=== PATIENT | female | born 1975 | race African-American/Black ===

== ENCOUNTER 2020-06-04 17:06 | Emergency (ER) | payer BC, OTHER, MEDICAID, SELFPAY ==
[2020-06-04 17:11] VITALS: BP 132/77; PULSE 97; RESP 14; TEMP 36.9; O2SAT 100
--- NOTE | 2020-06-04 17:31 | ED.GENADULT ---
HPI - General Adult General Chief complaint: Urogenital-Female Stated complaint: pain with urination/vaginal discharge Time Seen by Provider: 06/04/20 17:31 Source: patient and RN notes reviewed Mode of arrival: ambulatory Limitations: no limitations History of Present Illness HPI narrative: 44-year-old -[place] female presents with vaginal irritation day for the past 3 days. No treatment. No significant pelvic pain. Dysuria consists of frequency, pressure, and decrease urine amount. Denies fever or chills. Concerned for STDs because she had unprotected sex with her . History of BV. No history of STDs. No new partners. Sexually active. No new partner. Denies unprotected intercourse with multiple partners. Does not douche. Exacerbating factors consist of urinating. Denies hematuria or vaginal bleeding. Denies being , LMP 8-9 days ago.? No flank pain. Denies nausea, vomiting, and abdominal pain.? Tolerating liquids well.? Remains active. The patient reports she have not been diagnosed with COVID-19. The patient reports she is not waiting for the results of a COVID-19 lab test. The patient reports she do not have fever, chills, weakness, or fatigue. The patient reports she do not have a new or worsening cough or shortness of breath. Denies chest pain. The patient reports she do not have any rhinorrhea, congestion, sore throat, and diarrhea. Denies recent traveling. Denies concerns for COVID-19 or exposures been home with limited outdoor exposure except for essential household needs, work, and return home. At this time, patient is not suspected of having COVID-19. Some parts of this dictation were generated by voice recognition software and may contain typographical and/or grammatical inaccuracies. Related Data Home Medications Medication Instructions Recorded Confirmed alprazolam 1 mg PO BID 11/30/19 06/04/20 ergocalciferol (vitamin D2) 50,000 unit PO WEEKLY 11/30/19 06/04/20 [Vitamin D2] hydrochlorothiazide 12.5 mg PO DAILY 11/30/19 06/04/20 hydroxyzine HCl 30 mg PO DAILY 06/04/20 06/04/20 hydroxyzine pamoate 25 mg PO HS 06/04/20 06/04/20 vexkvudfwupe-vwp-lexe-FA-vit K 1 tablet PO DAILY 06/04/20 06/04/20 [Adults Multivitamin] valacyclovir 1 mg PO DAILY 06/04/20 06/04/20 Allergies Allergy/AdvReac Type Severity Reaction Status Date / Time levofloxacin Allergy Mild Stroke Verified 06/04/20 17:26 like symptoms RASH diazepam Allergy Unknown Hallucinati Verified 06/04/20 17:26 ng hydrocodone Allergy Unknown Itching Verified 06/04/20 17:26 Sulfa (Sulfonamide Allergy Unknown Other Verified 06/04/20 17:26 Antibiotics) Review of Systems Review of Systems: Narrative: CONSTITUTIONAL: Denies fever, chills, sweats. EYES: Denies visual changes, redness, discharge. ENT: Denies rhinorrhea, congestion, sore throat, otalgia. CARDIOVASCULAR: Denies chest pain, palpitations, edema. RESPIRATORY: Denies dyspnea, wheezing, cough. GASTROINTESTINAL: Denies abdominal pain, nausea, vomiting, diarrhea. GENITOURINARY: Complains of dysuria (frequency, pressure, and decrease urine amount), vaginal irritation, abnormal discharge. Denies hematuria. SKIN: Denies rash or itching. MUSCULOSKELETAL: Denies acute back pain, joint pain, or myalgia. NEUROLOGIC: Denies numbness or focal weakness. PSYCHIATRIC: Denies anxiety or depression. All systems reviewed & are unremarkable except as noted in HPI and below. [facility] Past Medical History Medical History (Updated 06/05/20 @ 00:00 by Background Daemon) Bacterial vaginosis delivery delivered History of cold sores Surgical History Surgical History (Updated 06/04/20 @ 18:03 by KRISTAL Barraza) Gastric bypass status for obesity H/O section X3 History of cholecystectomy Family History Family History (Updated 06/04/20 @ 18:04 by KRISTAL Barraza) Father Alive and well Mother Schizophrenia Social Histo
--- NOTE | 2020-06-04 18:00 | PC.NURSE ---
NO UC ORDERED PER LARISA
[2020-06-04] MEDS: AZITHROMYCIN 250 MG TABLET 1000 MG PO (18:09)
[2020-06-04] MEDS: LIDOCAINE HCL 1% LOCAL INJ 20 ML VIAL INFILTRATE (18:10)
[2020-06-04] MEDS: cefTRIAXone 250 MG VIAL IM (18:11)
== END 2020-06-04 18:30 | disposition home or self-care (01) ==
PROVIDERS: Emergency Provider Nurse Practitioner Family; PCP Internal Medicine
DX: N76.0 Acute vaginitis (principal); R30.0 Dysuria; Z11.3 Encounter for screening for infections with a predominantly sexual mode of transmission; Z98.84 Bariatric surgery status
CPT/HCPCS: 81003; 87491; 87591; 87661; 96372; 99214; A9270; G0463; J0696

== ENCOUNTER 2020-06-18 16:34 | Emergency (ER) | payer BC, OTHER, MEDICAID, SELFPAY ==
--- NOTE | 2020-06-18 16:43 | ED.GENADULT ---
HPI - General Adult General Chief complaint: Urogenital-Female Stated complaint: Urogenital-female Time Seen by Provider: 06/18/20 16:57 Source: patient and RN notes reviewed Mode of arrival: ambulatory Limitations: no limitations History of Present Illness HPI narrative: 44-year-old female presents with concern for dysuria, urgency, frequency for 2 days. Reports history of bacterial vaginosis, was recently seen by her meeting coordinator for a Pap smear and test for BV, does not have those results. She denies flank pain, fever, abdominal pain, reports suprapubic tenderness. complaint: dysuria Related Data Home Medications Medication Instructions Recorded Confirmed alprazolam 1 mg PO BID 11/30/19 06/18/20 hydrochlorothiazide 12.5 mg PO DAILY 11/30/19 06/04/20 hydroxyzine HCl 30 mg PO DAILY 06/04/20 06/18/20 hydroxyzine pamoate 25 mg PO HS 06/04/20 06/18/20 nqkobmufuabh-oqb-qvwb-FA-vit K 1 tablet PO DAILY 06/04/20 06/18/20 [Adults Multivitamin] valacyclovir 1 mg PO DAILY 06/04/20 06/18/20 Allergies Allergy/AdvReac Type Severity Reaction Status Date / Time Sulfa (Sulfonamide Allergy Severe Other Verified 06/18/20 16:58 Antibiotics) hydrocodone Allergy Mild Itching Verified 06/18/20 16:58 diazepam Allergy Unknown Hallucinati Verified 06/18/20 16:58 ng levofloxacin AdvReac Severe Stroke Verified 06/18/20 16:58 like symptoms RASH Review of Systems Review of Systems: Narrative: CONSTITUTIONAL: Denies malaise, chills, sweats, or fever. CARDIOVASCULAR: Denies chest pain, palpitations, or edema. RESPIRATORY: Denies cough or dyspnea. GASTROINTESTINAL: Denies abdominal pain, nausea, vomiting, diarrhea GENITOURINARY: Reports suprapubic pain, frequency, urgency, dysuria. Denies flank pain or hematuria. MUSCULOSKELETAL: Denies back pain, or myalgia. All systems reviewed & are unremarkable except as noted in HPI and below PMFSH Past Medical History Medical History (Updated 06/18/20 @ 17:16 by Jael Andrews NP) Bacterial vaginosis delivery delivered History of cold sores Surgical History Surgical History (Updated 06/04/20 @ 18:03 by KRISTAL Barraza) Gastric bypass status for obesity H/O section X3 History of cholecystectomy Family History Family History (Updated 06/04/20 @ 18:04 by KRISTAL Barraza) Father Alive and well Mother Schizophrenia Social History Social History (Updated 06/04/20 @ 18:04 by KRISTAL Barraza) Smoking status: Never smoker Second hand tobacco smoke exposure: No Alcohol intake: never Substance use: never Gender identity (if verbalized by the patient): Female Comments At time of signature, agree with nursing past medical, surgical, social and family history. There is no relevant family history pertinent to the presenting complaint Exam Narrative: Exam Narrative: GENERAL: Well-appearing, well-nourished, and in no acute distress. HEAD: Normocephalic. EYES: PERRLA, conjunctivae clear. NECK: Supple. No lymphadenopathy CHEST: Clear to auscultation. No respiratory distress. HEART: Regular rate and rhythm. No murmur heard. Normal peripheral pulses. ABDOMEN: Soft, nontender upon palpation, nondistended, normal active bowel sounds, no palpable or pulsatile masses, no guarding. No CVA tenderness. Suprapubic tenderness SKIN: Warm, dry, no rash. NEURO: Alert and oriented x3. PSYCH: Normal mood and affect Course Course Emergency Course: Patient is aware of diagnosis, understands and agrees to treatment plan. Anticipatory guidance given. Patient agrees to follow-up as directed and is aware of reasons to seek care at the emergency department. Portions of this record may have been created with voice recognition software Vital Signs Vital signs: Vital Signs Temperature 98.2 F 06/18/20 16:47 Pulse Rate 69 06/18/20 16:47 Respiratory Rate 18 06/18/20 16:47 Blood Pressure 126/83 06/18/20 16:47 Pu
[2020-06-18 16:47] VITALS: BP 126/83; PULSE 69; RESP 18; TEMP 36.8; O2SAT 100
== END 2020-06-18 17:20 | disposition home or self-care (01) ==
PROVIDERS: Emergency Provider Nurse Practitioner; PCP Internal Medicine
DX: N39.0 Urinary tract infection, site not specified (principal); Z98.84 Bariatric surgery status; I10 Essential (primary) hypertension; F41.9 Anxiety disorder, unspecified
CPT/HCPCS: 81003; 87086; 87088; 99213; G0463

== ENCOUNTER 2020-10-21 15:58 | Outpatient (CLI) | payer BC, OTHER, MEDICAID, SELFPAY ==
[2020-10-21 17:34] LABS: HIV 1/2 Ab P24 Ag Result Negative (Negative)
[2020-10-21 18:35] LABS: Hepatitis C Virus Antibody Negative (Negative)
[2020-10-23 06:59] LABS: Rapid Plasma Reagin Non-Reactive (NonReactive)
[2020-10-27 05:02] LABS: Hepatitis Be Antigen Nonreactive
== END 2020-10-21 15:59 | disposition home or self-care (01) ==
LOC: ANHLAB 16:02
PROVIDERS: PCP Internal Medicine; Visit Provider Obstetrics & Gynecology
DX: Z11.3 Encounter for screening for infections with a predominantly sexual mode of transmission (principal)
CPT/HCPCS: 36415; 86592; 86703; 86803; 87350; G0432

== ENCOUNTER 2020-10-21 17:10 | Emergency (ER) | payer BC, OTHER, MEDICAID, SELFPAY ==
[2020-10-21 17:14] VITALS: BP 127/84; PULSE 93; RESP 14; TEMP 36.9; O2SAT 100
--- NOTE | 2020-10-21 17:22 | ED.GENADULT ---
HPI - General Adult General Chief complaint: Upper Respiratory Infection Stated complaint: sore throat Time Seen by Provider: 10/21/20 17:22 Source: patient and RN notes reviewed Mode of arrival: ambulatory Limitations: no limitations History of Present Illness HPI narrative: 45 year old female who presents to [facility] care with complaints of sore throat which started yesterday with pain increasing since last night. Patient states that she also has had some clear nasal drainage and states frontal headache. Patient denies any fevers, no ear pain, cough, denies any difficulty smelling or with taste. Patient states that pain to throat is increased with swallowing. Patient has even and nonlabored respirations with no dyspnea noted or verbalized. MD complaint: sore throat Onset (ago): day(s) (2) Location: mouth (sore throat) Radiation: non-radiation Severity: severe Severity scale (1-10): 7 Quality: aching and sharp Pain Consistency: intermittent Exacerbating factors: eating and other (swallowing) Associated symptoms: headaches and other (sore throat) Treatments prior to arrival: none Related Data Home Medications Medication Instructions Recorded Confirmed hydrochlorothiazide 12.5 mg PO DAILY 11/30/19 10/21/20 hydroxyzine HCl 30 mg PO DAILY 06/04/20 10/21/20 folic acid 1 mg PO DAILY 10/21/20 10/21/20 Allergies Allergy/AdvReac Type Severity Reaction Status Date / Time Sulfa (Sulfonamide Allergy Severe Hives Verified 10/21/20 17:23 Antibiotics) hydrocodone Allergy Mild Itching Verified 10/21/20 17:23 diazepam Allergy Unknown Hallucinati Verified 10/21/20 17:23 ng levofloxacin AdvReac Severe Stroke Verified 10/21/20 17:23 like symptoms RASH Review of Systems Review of Systems: Narrative: CONSTITUTIONAL: Denies fever, chills, or sweats. EYES: Denies visual changes, redness, or discharge. ENT: positive for rhinorrhea, congestion, sore throat, no otalgia. CARDIOVASCULAR: Denies chest pain, palpitations, or edema. RESPIRATORY: Denies cough or dyspnea. GASTROINTESTINAL: Denies abdominal pain, nausea, vomiting, or diarrhea. GENITOURINARY: Denies dysuria or hematuria. SKIN: Denies rash or itching. MUSCULOSKELETAL: Denies back pain, joint pain, or myalgia. NEUROLOGIC: positive for frontal headache,denies any numbness, or weakness. PSYCHIATRIC: Positive for history of anxiety or depression. [facility] Past Medical History Medical History (Updated 10/21/20 @ 17:40 by Rubina Davis NP) Anxiety Bacterial vaginosis delivery delivered History of cold sores Hypertension Pneumonia Surgical History Surgical History (Updated 10/21/20 @ 18:06 by Rubina Davis NP) Gastric bypass status for obesity H/O section X3 History of appendectomy History of cholecystectomy History of repair of hiatal hernia Family History Family History (Updated 06/04/20 @ 18:04 by KRISTAL Barraza) Father Alive and well Mother Schizophrenia Social History Social History (Updated 06/04/20 @ 18:04 by KRISTAL Barraza) Smoking status: Never smoker Second hand tobacco smoke exposure: No Alcohol intake: never Substance use: never Gender identity (if verbalized by the patient): Female Comments At time of signature, agree with nursing past medical, surgical, social and family history. There is no relevant family history pertinent to the presenting complaint Exam Narrative: Exam Narrative: GENERAL: Well-appearing, well-nourished, and in no acute distress. HEAD: Normocephalic, atraumatic. EYES: PERRLA and EOMI. ENT: Nares mild redness,clear rhinorrhea or epistaxis. Mucous membranes moist.TM's normal with good light reflex. throat red with enlarged tonsils with white exudates noted. NECK: Supple.lymphadenopathy CHEST: Clear to auscultation. No respiratory distress.SAO2 100% on room air. HEART: Regular rate and rhythm. No murmur heard. Normal peripheral pulses. ABDOMEN: Soft,
== END 2020-10-21 17:45 | disposition home or self-care (01) ==
PROVIDERS: Emergency Provider Registered Nurse; PCP Internal Medicine
DX: J02.0 Streptococcal pharyngitis (principal); I10 Essential (primary) hypertension; E66.9 Obesity, unspecified; Z68.34 Body mass index [BMI] 34.0-34.9, adult; Z98.84 Bariatric surgery status
CPT/HCPCS: 87804; 87880; 99213; G0463

== ENCOUNTER 2021-03-04 18:39 | Emergency (ER) | payer BC, OTHER, MEDICAID, SELFPAY ==
[2021-03-04 18:45] VITALS: BP 113/72; PULSE 73; RESP 18; TEMP 36.1; O2SAT 100
--- NOTE | 2021-03-04 19:04 | ED.FEMALEGU ---
HPI - Female Genitourinary General Chief complaint: Urogenital-Female Stated complaint: heavy discharge Source: patient and RN notes reviewed Mode of arrival: ambulatory Limitations: no limitations History of Present Illness MD elicited complaint: vaginal discharge and possible STD Pertinent past history: STI/STD Onset (ago): day(s) (2) Location of symptoms: perineum Vaginal discharge: yellow and vaginal odor Vaginal bleeding: none Treatment prior to arrival: none Sexual activity: Yes and New Sexual Partners Date of Last Menstrual Period: 02/09/21 Related Data Allergies Allergy/AdvReac Type Severity Reaction Status Date / Time Sulfa (Sulfonamide Allergy Severe Hives Verified 03/04/21 19:05 Antibiotics) hydrocodone Allergy Mild Itching Verified 03/04/21 19:05 diazepam Allergy Unknown Hallucinati Verified 03/04/21 19:05 ng levofloxacin AdvReac Severe Stroke Verified 03/04/21 19:05 like symptoms RASH Review of Systems Review of Systems: Narrative: CONSTITUTIONAL: Denies fever, chills, or sweats. EYES: Denies visual changes, redness, or discharge. ENT: Denies rhinorrhea, congestion, sore throat, or otalgia. CARDIOVASCULAR: Denies chest pain, palpitations, or edema. RESPIRATORY: Denies cough or dyspnea. GASTROINTESTINAL: Denies abdominal pain, nausea, vomiting, or diarrhea. GENITOURINARY: Denies dysuria or hematuria, states thick greenish vaginal discharge with odor SKIN: Denies rash or itching. MUSCULOSKELETAL: Denies back pain, joint pain, or myalgia. NEUROLOGIC: Denies headache, numbness, or weakness. PSYCHIATRIC: Positive history of anxiety or depression. All systems reviewed & are unremarkable except as noted in HPI and below PMFSH Past Medical History Medical History Anxiety Bacterial vaginosis delivery delivered History of cold sores Hypertension Pneumonia Surgical History Surgical History Gastric bypass status for obesity H/O section X3 History of abdominoplasty History of appendectomy History of cholecystectomy History of oophorectomy History of repair of hiatal hernia Family History Family History Father Alive and well Mother Schizophrenia Social History Social History Smoking status: Never smoker Second hand tobacco smoke exposure: No Alcohol intake: never Substance use: never Gender identity (if verbalized by the patient): Female Comments At time of signature, agree with nursing past medical, surgical, social and family history. There is no relevant family history pertinent to the presenting complaint Exam Narrative: Exam Narrative: GENERAL: Well-appearing, well-nourished, and in no acute distress. HEAD: Normocephalic, atraumatic. EYES: PERRLA and EOMI. ENT: Nares clear, no rhinorrhea or epistaxis. Mucous membranes moist.TM's normal with good light reflex, throat pink with no lesions or exudates noted NECK: Supple.no lymphadenopathy CHEST: Clear to auscultation. No respiratory distress.SAO2 100% on room air HEART: Regular rate and rhythm. No murmur heard. Normal peripheral pulses. ABDOMEN: Soft, nontender, nondistended, normal active bowel sounds.Vaginal examination with use of spectrum noted thick yellow tinged discharge with foul odor, vaginal gallo pink, no external lesions noted, specimens obtained via cultures and sent to lab for analysis EXTREMITIES: Normal range of motion. No edema. SKIN: Warm, dry, no rash. NEURO: No focal deficits. Alert and oriented x3. Course Vital Signs Vital signs: Vital Signs Temperature 36.1 C L 03/04/21 18:45 Pulse Rate 73 03/04/21 18:45 Respiratory Rate 18 03/04/21 18:45 Blood Pressure 113/72 03/04/21 18:45 Pulse Oximetry 100 03/04/21 18:45 Temperature 36.1
[2021-03-04] MEDS: LIDOCAINE HCL 1% LOCAL INJ 20 ML VIAL 2.1 ML IM (19:35)
[2021-03-04] MEDS: cefTRIAXone 1 GM VIAL IM (19:35)
== END 2021-03-04 19:44 | disposition home or self-care (01) ==
PROVIDERS: Emergency Provider Registered Nurse
DX: Z20.2 Contact with and (suspected) exposure to infections with a predominantly sexual mode of transmission (principal); I10 Essential (primary) hypertension; Z98.84 Bariatric surgery status
CPT/HCPCS: 87491; 87591; 87661; 96372; 99214; G0463; J0696

== ENCOUNTER 2021-09-20 12:25 | Emergency (ER) | payer BC, OTHER, MEDICAID, SELFPAY ==
--- NOTE | 2021-09-20 12:36 | ED.FEMALEGU ---
HPI - Female Genitourinary General Stated complaint: Vaginal Discharge Source: patient and RN notes reviewed Mode of arrival: ambulatory Limitations: no limitations Review of Systems Review of Systems: CONSTITUTIONAL: Denies malaise, chills, sweats, or fever. EYES: Denies visual changes, redness, or discharge. ENT: Denies rhinorrhea, congestion, sinus pain, otalgia or sore throat. CARDIOVASCULAR: Denies chest pain, palpitations, or edema. RESPIRATORY: Denies cough or dyspnea. GASTROINTESTINAL: Denies abdominal pain, nausea, vomiting, diarrhea, bloody, or mucous stools. GENITOURINARY: Denies dysuria or hematuria. SKIN: Denies rash or itching. MUSCULOSKELETAL: Denies back pain, joint pain, or myalgia. NEUROLOGIC: Denies numbness, weakness, or headache. PSYCHIATRIC: Denies anxiety or depression. All systems reviewed & are unremarkable except as noted in HPI and below PMFSH Comments At time of signature, agree with nursing past medical, surgical, social and family history. There is no relevant family history pertinent to the presenting complaint Exam Narrative: GENERAL: Well-appearing, well-nourished, and in no acute distress. HEAD: Normocephalic. EYES: PERRLA, conjunctivae clear. NECK: Supple. No lymphadenopathy CHEST: Clear to auscultation. No respiratory distress. HEART: Regular rate and rhythm. ABDOMEN: Soft, nontender upon palpation, nondistended, normal active bowel sounds, no palpable or pulsatile masses, no guarding. No CVA tenderness SKIN: Warm, dry, no rash. NEURO: Alert and oriented x3. PSYCH: Normal mood and affect Course Course Emergency Course: Patient is aware of diagnosis, understands and agrees to treatment plan. Anticipatory guidance given. Patient agrees to follow-up as directed and is aware of reasons to seek care at the emergency department. Portions of this record may have been created with voice recognition software Vital Signs Vital signs: Reviewed. MDM - Female Genitourinary MDM Narrative Medical decision making narrative: Exam findings show no acute concerns or changes; patient is non-toxic appearing and is in no distress. Patient is appropriate for outpatient treatment and follow-up. Differential Diagnosis Differential diagnosis: Likely urinary tract infection, bacterial vaginosis, vaginitis and cystitis Critical Care Time Critical Care Time Critical Care Time: No
[2021-09-20 12:41] VITALS: BP 125/83; PULSE 80; RESP 18; TEMP 37; O2SAT 100
--- NOTE | 2021-09-20 12:41 | ED.FEMALEGU ---
HPI - Female Genitourinary General Chief complaint: Urogenital-Female Stated complaint: Vaginal Discharge Time Seen by Provider: 09/20/21 12:55 Source: patient and RN notes reviewed Mode of arrival: ambulatory Limitations: no limitations History of Present Illness HPI Narrative: 46-year-old female presents with concern for fishy smelling jeter thick vaginal discharge. Reports recent intercourse with a broken condom and is concern for STD exposure. She denies dysuria, frequency, urgency. Denies abdominal pain, vomiting. MD elicited complaint: vaginal discharge Related Data Allergies Allergy/AdvReac Type Severity Reaction Status Date / Time Sulfa (Sulfonamide Allergy Severe Hives Verified 09/20/21 13:16 Antibiotics) hydrocodone Allergy Itching Verified 09/20/21 13:19 levofloxacin Allergy Other Verified 09/20/21 13:18 diazepam AdvReac Hallucinati Verified 09/20/21 13:20 ng metronidazole [From Flagyl] AdvReac Nausea and Verified 09/20/21 13:12 Vomiting Review of Systems Review of Systems: CONSTITUTIONAL: Denies malaise, chills, sweats, or fever. GASTROINTESTINAL: Denies abdominal pain, nausea, vomiting, diarrhea, bloody, or mucous stools. GENITOURINARY: Denies dysuria, frequency, urgency, or hematuria. Reports fishy jeter vaginal discharge for approximately 3 days SKIN: Denies General rash or itching. MUSCULOSKELETAL: Denies back pain or myalgia. All systems reviewed & are unremarkable except as noted in HPI and below PMFSH Comments At time of signature, agree with nursing past medical, surgical, social and family history. There is no relevant family history pertinent to the presenting complaint Exam Narrative: GENERAL: Well-appearing, well-nourished, and in no acute distress. HEAD: Normocephalic. EYES: PERRLA, conjunctivae clear. NECK: Supple. No lymphadenopathy CHEST: Clear to auscultation. No respiratory distress. HEART: Regular rate and rhythm. ABDOMEN: No CVA tenderness SKIN: Warm, dry, no rash. NEURO: Alert and oriented x3. PSYCH: Normal mood and affect patient declines pelvic exam Course Course Emergency Course: Patient is aware of diagnosis, understands and agrees to treatment plan. Anticipatory guidance given. Patient agrees to follow-up as directed and is aware of reasons to seek care at the emergency department. Portions of this record may have been created with voice recognition software Vital Signs Vital signs: Reviewed. MDM - Female Genitourinary MDM Narrative Medical decision making narrative: Exam findings show no acute concerns or changes; patient is non-toxic appearing and is in no distress. Patient is appropriate for outpatient treatment and follow-up. Differential Diagnosis Differential diagnosis: Likely urinary tract infection, bacterial vaginosis, vaginitis, cystitis and other (STI) Critical Care Time Critical Care Time Critical Care Time: No Discharge Plan Discharge Clinical Impression: Possible exposure to STD, Problematic vaginal discharge Patient Disposition: Home, Self-Care Condition: Stable Instructions: Antibiotic Form, Bacterial Vaginosis (ED), Sexually Transmitted Diseases (ED) Additional Instructions: You have been tested for potential gonorrhea, chlamydia, and bacterial vaginosis today. You have received antibiotics to treat gonorrhea today, a prescription has been called into your pharmacy to treat chlamydia and bacterial vaginosis. You will receive a phone call in 2-3 days with the results of today's testing. It is very important that you avoid unprotected intercourse during treatment and for 7 days AFTER TREATMENT is complete and until your partner(s) have been treated. Please encourage your partner(s) to seek testing and treatment. When you have been exposed to sexually transmitted infections, it is important that you seek comprehensive testing, since we do not provide testing for all sexually transmitted infections. Some infections can have no s
[2021-09-20] MEDS: cefTRIAXone 1 GM VIAL 0.5 GM IM (13:29)
[2021-09-20] MEDS: LIDOCAINE HCL 1% LOCAL INJ 20 ML VIAL 2.1 ML IM (13:32)
== END 2021-09-20 13:55 | disposition home or self-care (01) ==
PROVIDERS: Emergency Provider Nurse Practitioner
DX: N89.8 Other specified noninflammatory disorders of vagina (principal)
CPT/HCPCS: 81003; 87491; 87591; 87661; 96372; 99214; G0463; J0696

== ENCOUNTER 2022-03-09 11:47 | Emergency (ER) | payer OTHER, MEDICAID, SELFPAY ==
[2022-03-09 11:52] VITALS: BP 126/77; PULSE 76; RESP 20; TEMP 36.8; O2SAT 100
--- NOTE | 2022-03-09 12:13 | ED.ALLEREA ---
HPI - Allergic Reaction General Chief complaint: Allergic Reaction Stated complaint: allergic reaction - hives and throat swelling Time Seen by Provider: 03/09/22 12:00 History of Present Illness HPI narrative: 46-year-old female presents to the emergency room for evaluation of allergic reaction. Patient states yesterday she was eating Vietnamese fries, and soon thereafter felt that her throat was closing up and developed a rash on her chest and neck. Patient states that she took some Benadryl last night and did not resolve her symptoms. Patient states that she will occasionally get the symptoms, not knowing what the trigger is Related Data Allergies Allergy/AdvReac Type Severity Reaction Status Date / Time Sulfa (Sulfonamide Allergy Severe Hives Verified 03/09/22 12:06 Antibiotics) hydrocodone Allergy Mild Itching Verified 03/09/22 12:06 diazepam Allergy Unknown Hallucinati Verified 03/09/22 12:06 ng levofloxacin AdvReac Severe Stroke Verified 03/09/22 12:06 like symptoms RASH metronidazole [From Flagyl] AdvReac Nausea and Verified 03/09/22 12:06 Vomiting Review of Systems Review of Systems: CONSTITUTIONAL: Denies fever, chills, or sweats. EYES: Denies visual changes, redness, or discharge. ENT: Denies rhinorrhea, congestion, sore throat, or otalgia. CARDIOVASCULAR: Denies chest pain, palpitations, or edema. RESPIRATORY: Reports shortness of breath GASTROINTESTINAL: Denies abdominal pain, nausea, vomiting, or diarrhea. GENITOURINARY: Denies dysuria or hematuria. SKIN: Reports rash MUSCULOSKELETAL: Denies back pain, joint pain, or myalgia. NEUROLOGIC: Denies headache, numbness, dizziness, or weakness. PSYCHIATRIC: Denies anxiety or depression. [facility] Past Medical History Medical History Anxiety Elective x1 HSV (herpes simplex virus) infection Type 1 and Type 2 Hypertension Missed x1 2009 PCOS (polycystic ovarian syndrome) Surgical History Surgical History Gastric bypass status for obesity 2011 H/O section X3 12/06/91, c/s, F, 6#7, Toxemia 09/21/06, c/s, M, 7# 11/21/09, c/s, M, 7# History of abdominoplasty History of appendectomy History of cholecystectomy 2013 History of left salpingo-oophorectomy History of repair of hiatal hernia Family History Family History Father Alive and well Mother Schizophrenia Social History Social History Smoking status: Never smoker Second hand tobacco smoke exposure: No Alcohol intake: never Substance use: never Gender identity (if verbalized by the patient): Female Sexual Orientation (if Verbalized by the Patient): Straight or Heterosexual Exam Narrative: GENERAL: Well-appearing, well-nourished, and in no acute distress. HEAD: Normocephalic, atraumatic. EYES: PERRLA and EOMI. ENT: Nares clear, no rhinorrhea or epistaxis. Mucous membranes moist. Oropharynx without tonsillar hypertrophy exudate or other lesions. Bilateral TMs pearly jeter nonbulging CHEST: Clear to auscultation. No respiratory distress. No wheezes rales or rhonchi HEART: Regular rate and rhythm. No murmur heard. Normal peripheral pulses. EXTREMITIES: Normal range of motion. No edema. SKIN: Scattered erythematous, maculopapular lesions to chest and right lateral neck NEURO: No focal deficits. Alert and oriented x3. PSYCH: Normal mood and affect. Course Vital Signs Vital signs: Vital Signs Temperature 36.8 C 03/09/22 11:52 Pulse Rate 76 03/09/22 11:52 Respiratory Rate 20 03/09/22 11:52 Blood Pressure 126/77 03/09/22 11:52 Pulse Oximetry 100 03/09/22 11:52 Temperature 36.8 C 03/09/22 11:52 Pulse Rate 76 03/09/22 11:52 Respiratory Rate 20 03/09/22 11:52 Blood Pressure 12
[2022-03-09] MEDS: methylPREDNISolone SOD SUCC 125 MG VIAL IV PUSH (12:40)
[2022-03-09] MEDS: diphenhydrAMINE HCl INJ 50 MG/ML VIAL 25 MG IV PUSH (12:40)
[2022-03-09] MEDS: SODIUM CHLORIDE 0.9% IV 1,000 ML 999 ML IV CONT (12:40)
[2022-03-09] MEDS: FAMOTIDINE 20 MG/2 ML VIAL IV PUSH (12:40)
--- NOTE | 2022-03-09 12:40 | PC.NURSE ---
pt stuck multiple times by 3 different rns to obtain iv access.
== END 2022-03-09 13:45 | disposition home or self-care (01) ==
PROVIDERS: Emergency Provider Nurse Practitioner Family
DX: T78.40XA Allergy, unspecified, initial encounter (principal); I10 Essential (primary) hypertension; E28.2 Polycystic ovarian syndrome; Z98.84 Bariatric surgery status
CPT/HCPCS: 96361; 96374; 96375; 99284; J1200; J2930; J7030

== ENCOUNTER 2023-08-08 17:53 | Emergency (ER) | payer OTHER, MEDICAID, SELFPAY ==
[2023-08-08 18:09] VITALS: BP 136/84; PULSE 72; RESP 16; TEMP 36.2; O2SAT 100
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
[2023-08-08] MEDS: cefTRIAXone 500 MG, LIDOCAINE HCL 1% LOCAL INJ 1 ML IM (18:38)
== END 2023-08-08 19:11 | disposition home or self-care (01) ==
PROVIDERS: Emergency Provider Nurse Practitioner Family; PCP Internal Medicine
DX: N76.0 Acute vaginitis (principal); H10.9 Unspecified conjunctivitis; I10 Essential (primary) hypertension; Z79.899 Other long term (current) drug therapy; Z11.3 Encounter for screening for infections with a predominantly sexual mode of transmission
CPT/HCPCS: 96372; 99214; G0463; J0696

== ENCOUNTER 2023-08-27 16:34 | Emergency (ER) | payer OTHER, MEDICAID, SELFPAY ==
--- NOTE | ~2023-08-27 | XR_ITS ---
EXAMINATION: XR chest 2V Exam Date/Time: 08/27/2023 17:30 CDT HISTORY: COUGH,SOB, SWELLING IN EXTREMITIES FOR 2 DAYS. Comparison: None. RESULT: Lines, tubes, and devices: None. Lungs and pleura: Clear. Cardiomediastinal silhouette: Normal. Other: No acute osseous or upper abdominal finding. IMPRESSION: No acute cardiopulmonary process. Reviewed, dictated and finalized at location K.
[2023-08-27 16:48] VITALS: BP 132/82; PULSE 82; RESP 16; TEMP 36.8; O2SAT 100
--- NOTE | 2023-08-27 17:14 | ED.URI ---
HPI - URI/Sore Throat General Chief Complaint: Upper Respiratory Infection Stated Complaint: cough,shortness of breath Time Seen by Provider: 08/27/23 17:05 Source: patient, RN notes reviewed and old records reviewed Mode of arrival: ambulatory Limitations: no limitations History of Present Illness HPI Narrative: 48 year old female presents to express care with complaints of having cough, nasal congestion and drainage and some shortness of breath for the past 2 days with cough and exertion, states some chest discomfort with cough also.. Patient reports that she is concerned that she could have COVID, strep or she has been exposed to flu. Patient reports that she works at [employer] [place] and has had several kids with COVID. Patient concerned since she has noticed some swelling of her hands and of her feet lately also.Patient denies any fevers, chills or sweats or body aches. MD elicited complaint: cough, nasal congestion and other Pertinent past history: pneumonia and other (gastric bypass) Onset (ago): day(s) (2) Pain scale (0-10): 2 Able to tolerate fluids by mouth: Yes Treatments prior to arrival: none Related Data Allergies Allergy/AdvReac Type Severity Reaction Status Date / Time Sulfa (Sulfonamide Allergy Severe Hives Verified 08/27/23 16:56 Antibiotics) hydrocodone Allergy Mild Itching Verified 08/27/23 16:56 diazepam Allergy Unknown Hallucinati Verified 08/27/23 16:56 ng levofloxacin AdvReac Severe Stroke Verified 08/27/23 16:56 like symptoms RASH metronidazole [From Flagyl] AdvReac Nausea and Verified 08/27/23 16:56 Vomiting Review of Systems Review of Systems: CONSTITUTIONAL: Denies fever, chills, or sweats. EYES: Denies visual changes, redness, or discharge. ENT: Reports some rhinorrhea, congestion, no sore throat, or otalgia. CARDIOVASCULAR: states some chest pain with cough intermittent, no palpitations, edema to feet and ankles RESPIRATORY: Reports cough some dyspnea with exertion GASTROINTESTINAL: Denies abdominal pain, nausea, vomiting, or diarrhea. GENITOURINARY: Denies dysuria or hematuria. SKIN: Denies rash or itching. MUSCULOSKELETAL: Denies back pain, joint pain, or myalgia. NEUROLOGIC: Denies headache, numbness, or weakness. PSYCHIATRIC: Positive for anxiety or depression. All systems reviewed & are unremarkable except as noted in HPI and below PMFSH Past Medical History Medical History Anxiety Elective x1 HSV (herpes simplex virus) infection Type 1 and Type 2 Hypertension Missed x1 2010 PCOS (polycystic ovarian syndrome) Surgical History Surgical History Gastric bypass status for obesity 2012 H/O section X3 12/06/91, c/s, F, 6#7, Toxemia 09/21/06, c/s, M, 7# 11/21/09, c/s, M, 7# History of abdominoplasty History of appendectomy History of cholecystectomy 2013 History of left salpingo-oophorectomy History of repair of hiatal hernia Family History Family History Father Alive and well Mother Schizophrenia Social History Social History Smoking status: Never smoker Second hand tobacco smoke exposure: No Alcohol intake: never Substance use: never Living arrangements: with family Occupation/Education: occupation Gender identity (if verbalized by the patient): Female Sexual Orientation (if Verbalized by the Patient): Straight or Heterosexual Comments At time of signature, agree with nursing past medical, surgical, social and family history. There is no relevant family history pertinent to the presenting complaint Exam Narrative: GENERAL: Well-appearing, well-nourished, and in no acute distress. HEAD: Normocephalic, atraumatic. EYES: PERRLA
== END 2023-08-27 18:03 | disposition home or self-care (01) ==
PROVIDERS: Emergency Provider Registered Nurse; PCP Internal Medicine
DX: J06.9 Acute upper respiratory infection, unspecified (principal); Z20.822 Contact with and (suspected) exposure to COVID-19; I10 Essential (primary) hypertension; E28.2 Polycystic ovarian syndrome; Z98.84 Bariatric surgery status; E66.9 Obesity, unspecified; Z68.35 Body mass index [BMI] 35.0-35.9, adult
CPT/HCPCS: 71046; 87081; 87426; 87804; 87880; 99213; C9803; G0463

== ENCOUNTER 2023-11-04 11:03 | Outpatient (CLI) | payer OTHER, MEDICAID, SELFPAY ==
[2023-11-04 12:33] LABS: Rapid Plasma Reagin Non-Reactive (NonReactive)
[2023-11-04 12:41] LABS: HIV 1/2 Ab P24 Ag Result Negative (Negative)
[2023-11-04 12:47] LABS: Hepatitis B Surface Antigen Negative (Negative)
[2023-11-04 12:52] LABS: HAV RESULT Negative (Negative)
[2023-11-04 13:04] LABS: Hepatitis C Virus Antibody Negative (Negative)
== END 2023-11-04 11:04 | disposition home or self-care (01) ==
LOC: ANHLAB 11:07
PROVIDERS: Visit Provider Obstetrics & Gynecology
DX: A64 Unspecified sexually transmitted disease (principal)
CPT/HCPCS: 36415; 86592; 86695; 86696; 86703; 86709; 86803; 87340; G0432

== ENCOUNTER 2025-06-19 17:08 | Emergency (ER) | payer OTHER, MEDICAID, SELFPAY ==
--- OUTSIDE RECORDS SUMMARY | 2025-06-19 17:10 | XMS_ITS | Clinical Summary ---
Author Organization [facility] Address [address] [place] [address] Care Team Providers Care Electrician Station Assistant Name Role Phone Octavio Rodriguez MD Unavailable [phone] Yobany Parsons MD Unavailable [phone] Shana Wyatt MD Unavailable [phone] No, Physician Unavailable Olive Shah PT Unavailable Unavailable Osvaldo Crenshaw MACHINE STITCHER Unavailable [phone] Rosy Monroe MD Primary Care Provi albina Allergies Active Allergy Reactions Criticality Noted Date Comments Meperidine Anaphylaxis High 04/06/2022 Diazepam Other (See comments) Low 03/23/2017 Night terrors and irritability Hydromorphone Anaphylaxis High 03/29/2022 Metronidazole Rash Medium 06/05/2018 Hydrocodone Other (See comments) Low 06/05/2018 Bad dreams Levofloxacin Other (See comments) High Stroke like symptoms Sulfa (Sulfonamide Antibiotics) Other (See comments) Low Reaction: Stroke like symptoms Acetaminophen-Codeine Other (See comments) High 01/05/2023 Caused impaction resulting in hospitalization Medications cholecalciferol (VITAMIN D-3) 2000 unit tablet Take 1 tablet (2,000 Units total) by mouth daily Active EPINEPHrine 0.3 mg/0.3 mL auto-injection syringeIndicati ons:Anaphylaxis Inject 0.3 mL (0.3 mg total) into the muscle as instructed as needed for anaphylaxis 2 each 2 Active multivitamin capsule Take 1 capsule by mouth daily Active ascorbic acid (VITAMIN C) 500 mg tablet,chewable Take 1 tablet/chew tab (500 mg total) by mouth 2 (two) times a day 60 tablet/chew tab 3 Active tranexamic acid (LYSTEDA) 650 mg tablet TAKE 1/2 TABLET DAILY X 2 MONTHS 5 Active Hospital, Clinic, or Other Facility Administered Medication Ordered Dose Route Frequency Start Date End Date Status cyanocobalamin (Vitamin B-12) injection 1,000 mcgIndications:Vitamin B12 deficiency 1000 mcg IM Every 30 days 05/23/2025 Active Active Problems Problem Noted Date Diagnosed Date Bilateral sacroiliitis 10/14/2023 Complex tear of medial meniscus of right knee Spinal stenosis of lumbar re gion without neurogenic claudication 01/04/2023 Postlaminectomy syndrome, lumbar 01/03/2023 Lumbar radiculopathy 08/12/2022 Anaphylaxis 04/22/2022 Anaphylactic syndrome 03/29/2022 Anemia 05/26/2020 Anxiety 05/26/2020 Vitamin D deficiency 05/26/2020 DDD (degenerative disc disease), lumbar 04/18/20 Spinal stenosis of lumbar region 04/18/2019 Hypertension 12/07/2018 UTI (urinary tract infection) 09/04/2018 Iron deficiency 05/07/2018 Vitamin B12 deficiency 05/07/2018 Chronic bilateral low back pain without sciatica 10/28/2016 Flexural atopic dermatitis 10/28/2016 History of gastric bypass 10/28/2016 Postoperative pain Encounters Date Type Department Care Team Description 06/05/2025 Telephone [facility] Speech Therapy [address] [place] [address] Matilde Waters SLP 05/23/2025 8:30 AM CDT Office Visit [facility] [address] [facility] [address] [place] [address] Arturo Smith MD Memory loss (Primary Dx); Vitamin B12 deficiency 04/26/2025 3:52 PM CDT - 04/26/2025 11:59 PM CDT Hospital Encounter [facility] [address] [place] [address] Memory loss Discharge Disposition: Discharge to home or self care 04/26/2025 10:45 AM CDT Clinical Support [facility] [address] [place] [address] [address] [place] [address] Vitamin B12 deficiency (Primary Dx) 04/26/2025 Telephone [facility] [address] [place] [address] Justine Hernandez MA 04/16/2025 Results Follow-Up [facility] [address] [place] [address] Justine Hernandez MA Vitamin B12, TSH 04/15/2025 2:50 PM CDT Lab [address] [address] Vitamin B12 deficiency; Memory loss; Hypothyroidism, unspecified type 04/15/2025 11:30 AM CDT Office Visit [facility] [address] [place] [address] Arturo Smith MD Memory loss (Primary Dx); Vitamin B12 deficiency; Hypothyroidism, unspecified type from Last 3 Months Immunizations Immunization Administration Dates Next Due Hep A, Adult 10/12/2016,02/24/2016 Hep B Vaccine 10/12/2016,03/23/2016,02/24/2016 Influenza, Quadrivalent, Spl it, Intramuscular 10/12/2016 Influenza, Quadrivalent, Spl it, Preservative Free, Intramuscular 08/11/2018 Influenza, Trivalent, Preser vative Free, Intramuscular 03/01/2015 Influenza, Unspecified 09/08/2013 PPD TEST 06/08/2023 Tdap 03/23/2016 Surgical History Surgery Date Site/Laterality Comments SECTION 11/07/2009 - 11/06/2010 GASTRIC BYPASS 11/07/2010 - 11/06/2011 CARPAL TUNNEL RELEASE 11/07/2011 - 11/06/2012 Left CARPAL TUNNEL RELEASE Right CHOLECYSTECTOMY OOPHORECTOMY Left one ovary APPENDECTOMY SECTION x2 SPINE SURGERY 03-28-22 spinal fusion L3-L4 in went in the front of abdomen, 08-13-22 spinal fusion L3-L4 went in through the back RADIOFREQUENCY ABLATION Medical History Medical History Date Comments Gastric ulcer Anemia Anxiety Obesity BMI 33 Lumbar radiculopathy Spinal stenosis Chronic pain disorder Family History Medical History Relation Name Comments Hypertension Mother Robert mancilla Hypertensi on; Hypertension Other Family history of Hypertension; Relation Name Status Comments Mother Robert mancilla Other Social History Tobacco Use Types Packs/Day Years Used Date Smoking Tobacco: Never Smokeless Tobacco: Never Tobacco Cessation:Counseling Given: Not Answered Alcohol Use Standard Drinks/Week Comments No 0 (1 standard drink = 0.6 oz pur e alcohol) Social Connection and Isolation Panel Answer Date Recorded In a typical week, how many times do you talk on the phone with family, friends, or neighbors? More than three times a week 03/30/2022 How often do you get togethe r with friends or relatives? More than three times a week 03/30/2022 How often do you attend chur ch or gnosticist services? More than 4 times per year 03/30/2022 Do you belong to any clubs o r organizations such as caodaism groups, unions, fraternal or athletic groups, or school groups? Yes 03/30/2022 How often do you attend meet ings of the clubs or organizations you belong to? 1 to 4 times per year 03/30/2022 Are you , , di vorced, , never , or living with a partner? Never 03/30/2022 AUDIT-C Answer Date Recorded Q1: How often do you have a drink containing alc ohol? Never 04/07/2023 Average Number of Drinks Not on file 023 Frequency of Binge Drinking Not on file 11/2022 Overall Financial Resource Strain (CARDIA) Answe r Date Recorded How hard is it for you to pa y for the very basics like food, housing, medical care, and heating? Not very hard 03/30/2022 PRAPARE - Transportation Answer Date Re corded In the past 12 months, has l ack of transportation kept you from medical appointments or from getting medications? No 03/08 In the past 12 months, has l ack of transportation kept you from meetings, work, or from getting things needed for daily living? No 03/30/2022 Personal Safety Answer Date Recorded Have you ever been in or are you currently in a harmful physical or emotional relationship or is someone making you feel afraid or unsafe? Denies 10/16/2024 Comments No Sex and Gender Information Value Date Recorded Sex Assigned at Not on file Legal Sex Female 10:56 AM CONVERSION MAN Gender Identity Not on file Sexual Orientation Not on file Obstetrics History Para Term AB IAB SAB Ectopic Multiple Livin g Live Births 4 3 3 Date Outcome GA Total Labor Labor/2nd/3rd Weight Sex Type Anes PTL Kaylin A1 A5 Name Clin Term Term Term Last Filed Vital Signs Vital Sign Reading Time Taken Comments Blood Pressure 101/71 05/23/2025 8:13 AM CDT Pulse 91 05/23/2025 8:13 AM CDT Temperature 36.3 C (97.3 F) 10/16/2024 3:19 PM CONVERSION MAN Respiratory Rate 18 10/16/2024 7:34 PM CONVERSION MAN Oxygen Saturation 98% 05/23/2025 8:13 AM CDT Inhaled Oxygen Concentration - - Weight 72.7 kg (160 lb 3.2 oz) 05/23/2025 8:13 A M CDT Height 175.3 cm (5' 9.02) 05/23/2025 8:13 AM CD T Body Mass Index 23.65 05/23/2025 8:13 AM CDT Plan of Treatment Health Maintenance Due Date Last Done Comments Cervical Cancer Screening 1977 Colon Cancer Screening-Colonoscopy 1977 Depression Screening 1977 Regular Well Visit/Exam 18-64 1995 Breast Cancer Screening-Mammogram 06/29/2023 06/29/2022, 08/06/2020, 09/29/2018 Influenza Vaccine (#1) 2025 8, 10/12/2016, 03/01/2015, Additional history exists DTaP/Tdap/Td Vaccine (2 - Td or Tdap) 03/23/2026 03/23/2016 Hepatitis B Screening Completed 10/12/2016 , 03/23/2016, 02/24/2016 Hepatitis C Screening Completed 09/21/2023 Pneumococcal vaccine <65 Aged Out No longer eligible based on patient's age to complete this topic Medical Devices Implanted Type Area Switchboard And Control Room Operator Device Identifier Shelf Expiration Date Model / Serial / Lot Cage In Back From Prior Surgery N/A: Back [employer] Ar-8978-Cp Internalbrace Kit Hand Wrist Set Implant Ligament Augmentation - [id number] Implanted:Qty: 1 on 08/13/2021 by Octavio Rodriguez MD at [facility] Right: Thumb [employer] [id number] 02/04/2026 AR-8978-CP / / [id number] Allosource Allofuse Plus Putty Graft 5ml Bone Demineralized Bone Matrix [id number] - [id number] Implanted:Qty: 1 on 08/12/2022 by Yobany Parsons MD at [facility] Spine Lumbar Allosource 10/29/2022 [id number] / / [id number] Orthofix Spinal Implants Screw Bone 6.5mm 35mm Janus Spine Cortex Cannltd St Self [id number] - [id number] Implanted:Qty: 1 on 08/12/2022 by Yobany Parsons MD at [facility] Spine Lumbar Orthofix Spinal Implants [id number] / / Orthofix Spinal Implants Janus 6.5mm 40mm Cannulated Self Tap Self Drill Modular Spine [id number] - [id number] Implanted:Qty: 1 on 08/12/2022 by Yobany Parsons MD at [facility] Spine Lumbar Orthofix Spinal Implants [id number] / / Orthofix Spinal Implants Firebird 5.5mm 40mm Hexagon Taper End Prebent Red Spinal [id number] - [id number] Implanted:Qty: 1 on 08/12/2022 by Yobany Parsons MD at [facility] Spine Lumbar Orthofix Spinal Implants [id number] / / Orthofix Spinal Implants Firebird Modular Lock Spine Screw Set Fixation System 44 [id number] Implanted:Qty: 2 on 08/12/2022 by Yobany Parsons MD at [facility] Spine Lumbar Orthofix Spinal Implants 44 / / Orthofix Spinal Implants Gravette L120 Mm Open Body Spine; Thoracolumbar Tall Screw Bone 202119 - [id number] Implanted:Qty: 2 on 08/12/2022 by Yobany Parsons MD at [facility] Spine Lumbar Orthofix Spinal Implants [id number] / / Procedures Procedure Name Priority Date/Time Associated Diagnosis Comments MRI BRAIN WO CONTRAST Schedule Routine, Read Routine (OP Routine) 04/26/2025 4:35 PM CDT Memory loss METHYLMALONIC ACID, SERUM Routine 04/15/2025 3:01 PM CDT Vitamin B12 deficiency Memory loss Hypothyroidism, unspecified type TSH Routine 04/15/2025 3:01 PM CDT Vitamin B12 deficiency Memory loss Hypothyroidism, unspecified type VITAMIN B12 Routine 04/15/2025 3:01 PM CDT Vitamin B12 deficiency Memory loss Hypothyroidism, unspecified type HEPATITIS C ANTIBODY Routine 09/21/2023 3:46 PM CONVERSION MAN SCREENING MAMMOGRAM BILATERAL W MAMADOU W IMPLANTS Schedule Routine, Read Routine (OP Routine) 06/29/2022 2:28 PM CDT Screening mammogram, encounter for from Last 3 Months or Most Recently Relevant to Health Maintenance Results * MRI Brain WO Contrast (04/26/2025 4:35 PM CDT) Anatomical Region Laterality Modality Head and Neck N/A Magnetic Resonan ce 04/29/2025 6:35 AM CDT Narrative 04/29/2025 7:33 AM CDT EXAM DESCRIPTION: MRI BRAIN WO CONTRAST REASON FOR STUDY: memory loss Memory loss that started about 6 months ago. She believe the memory lost is being caused by a medication she started about a year. First encounter TECHNIQUE: Multiplanar imaging includes non-contrasted T1, T2, FLAIR, and diffusion with ADC map sequences. Additional sequence(s) sensitive to blood products. Images stored on PACS. COMPARISON: CT head without contrast dated 02/04/2023. FINDINGS: There is diffusion restriction to suggest acute/recent infarction. No parenchymal susceptibility signal to indicate blood degradation products. Note made of cavum septum pellucidi et vergae. There is no hydrocephalus. The basilar cisterns are maintained. The occasional subcortical and periventricular white matter tiny T2/FLAIR hyperintense signal in the cerebral hemispheres is highly nonspecific and reflect gliosis and can also be seen in setting of long-term headaches. Alternatively accelerated chronic microvascular ischemic type process or other white matter changes would also be included in the differential in the proper clinical scenario. Postcontrast imaging can be obtained as clinically indicated. The bilateral globes are symmetric. The imaged paranasal sinuses and the mastoid air cells are predominantly clear. IMPRESSION: 1. No acute/recent infarction. 2. The occasional white matter tiny T2/FLAIR hyperintense signal is highly nonspecific and could reflect gliosis and can also be seen in setting of long-term headaches. 3. Other findings as above. THIS IS AN ELECTRONICALLY VERIFIED FINAL REPORT 04/29/2025 7:33 AM - Electronically signed by Poncho Moe D.O. AP: ENID Report ID: [id number] Reading Location: [place] [address] Procedure Note Poncho Moe, DO - 04/29/2025 EXAM DESCRIPTION: MRI BRAIN WO CONTRAST REASON FOR STUDY: memory loss Memory loss that started about 6 months ago. She believe the memory lostis being caused by a medication she started about a year. First encounter TECHNIQUE: Multiplanar imaging includes non-contrasted T1, T2, FLAIR, and diffusion with ADC map sequences. Additional sequence(s) sensitive toblood products. Images stored on PACS. COMPARISON: CT head without contrast dated 02/04/2023. FINDINGS: There is diffusion restriction to suggest acute/recent infarction. No parenchymal susceptibility signal to indicate blood degradation products. Note made of cavum septum pellucidi et vergae. There is no hydrocephalus. The basilar cisterns are maintained. The occasional subcortical and periventricular white matter tiny T2/FLAIR hyperintense signal in the cerebral hemispheres is highly nonspecific and reflect gliosis and can also be seen in setting of long-term headaches. Alternatively accelerated chronic microvascular ischemic type process orother white matter changes would also be included in the differential in theproper clinical scenario. Postcontrast imaging can be obtained as clinically indicated. The bilateral globes are symmetric. The imaged paranasal sinuses and the mastoid air cells are predominantly clear. IMPRESSION: 1. No acute/recent infarction. 2. The occasional white matter tiny T2/FLAIR hyperintense signal ishighly nonspecific and could reflect gliosis and can also be seen in setting of long-term headaches. 3. Other findings as above. THIS IS AN ELECTRONICALLY VERIFIED FINAL REPORT 04/29/2025 7:33 AM - Electronically signed by Poncho Moe D.O. AP: ENID Report ID: [id number] Reading Location: [place] [address] Arturo Smith MD IMG MRI PROCEDURES Final Result * Methylmalonic acid, serum (04/15/2025 3:01 PM CDT) MMA 0.22 <=0.40 nmol/mL [facility] Comment: ADDITIONAL INFORMATION This test was developed and its performance characteristics determined by [facility] in a manner consistent with CLIA requirements. This test has not been cleared or approved by the U.S. Food and Drug Administration. Test Performed by: [facility] [place] [address] Piano Stringer: Madisyn Owens Ph.D.; CLIA# [id number] Blood 04/15/2025 3:01 PM CDT 04/15/2025 3:16 PM CDT Arturo Smith MD LAB BLOOD ORDERABLES Final Resul t INYZNK UXE ([place]) [address] [facility] Department [place] [employer] [place] [address] [facility] * TSH (04/15/2025 3:01 PM CDT) Thyroid Stimulating Hormone 0.73 0.30 - 4.20 mcIUnit/mL Blood 04/15/2025 3:01 PM CDT 04/15/2025 3:16 PM CDT Arturo Smith MD LAB BLOOD ORDERABLES Final Resul t Performing Organization Address City/[facility] Co de Phone Number MANAN JOHNS ([place]) [address] [facility] [place] [place] [address] * Vitamin B12 (04/15/2025 3:01 PM CDT) Vitamin B12 371 230 - 1,250 pg/mL Blood 04/15/2025 3:01 PM CDT 04/15/2025 3:16 PM CDT Arturo Smith MD LAB BLOOD ORDERABLES Final Resul t Performing Organization Address [facility] de Phone Number MANAN JOHNS ([place]) 1 [place] [address] * Hepatitis C antibody Blood (09/21/2023 3:46 PM CONVERSION MAN) Hep C Ab Nonreactive Nonreactive [facility] Comment:Antibodies to HCV no t detected. Does NOT exclude the possibility of recent exposure to HCV. Current interpretive data was last revised on 22 Blood 09/21/2023 3:46 PM CONVERSION MAN 09/21/2023 6:47 PM CONVERSION MAN Abdi Ramirez MD LAB MICROBIOLOGY - GENERAL O RDERABLES Final Result Performing Organization Address City/[facility] Co de Phone Number [facility] [place] [address] * Screening Mammogram Bilateral W Mamadou W Implants (06/29/2022 2:28 PM CDT) Anatomical Region Laterality Modality Breast Bilateral Mammography 06/29/2022 2:47 PM CDT Impressions 06/29/2022 2:47 PM CDT There is no mammographic evidence of malignancy. A 1 year screening mammogram is recommended. BI-RADS: 1 - Negative. The patient has been or will be contacted. The patient will be entered into a reminder system with a target due date of 1 year for her next mammogram. Electronically signed by: IMAN Coker 06/29/2022 2:47 PM CDT EXAMINATION: SCREENING MAMMOGRAM BILATERAL W MAMADOU W IMPLANTS ORDERING HEALTHCARE PROVIDER: SELF SCREENING MAMMOGRAM HISTORY: Routine screening mammography. COMPARISON: 08/06/2020, 04/13/2019. TECHNIQUE: CC and MLO views of both breasts , including implant-displaced views, were obtained with digital technique using digital breast tomosynthesis with C view. Computer aided detection was utilized. FINDINGS: DENSITY: The breasts have scattered areas of fibroglandular density. BREASTS: Bilateral saline implants appear intact. The presence of implants decreases sensitivity of mammography. There is no new suspicious finding in either breast on mammogram. us Self Screening Mammogram IMG MAMMO PROCEDURES Fi nal Result from Last 3 Months or Most Recently Relevant to Health Maintenance Insurance ID[place] H[place]/POS IDPA AETNA [place] HMO/POS [employer] Address: [address] [place] [address] IDPA [employer] HMO/POS [facility] [employer] Address: [address] [place] [address] AETNA [facility]MO [facility] Advance Directives For more information, please contact: [phone] * Full Code (Latest Code Status on File) Date Activated Date Inactivated Comments 08/12/2022 2:11 PM 08/13/2022 6:31 PM * Full Code Date Activated Date Inactivated Comments 03/29/2022 4:15 PM 04/02/2022 7:43 PM * Full Code Date Activated Date Inactivated Comments 12/08/2017 8:37 PM 12/12/2017 7:27 PM * Full Code Date Activated Date Inactivated Comments 12/08/2017 3:24 PM 12/08/2017 8:37 PM Care Teams Electrician Station Assistant Relationship Specialty Start Date End Date Rosy Monroe MD [address] [place] [address] PCP - General Family Medicine 04/15/25 [place] [address] [place] [address] [address] [place] [address] Consulting Physician Plastic Surgery 02/02/21 Yobany Parsons MD [address] [place] [address] Consulting Physician Orthopedic Surgery 03/30/22 Shana Wyatt MD [address] [facility] [address] [place] [address] Consulting Physician Allergy and Immunology 04/02/22 No, Physician 04/02/22 Olive Shah, PT Physical Therapist Physical Therapy 09/09/22 Osvaldo Crenshaw NP [address] [place] [address] Nurse Practitioner Nurse Practitioner 04/07/23
--- OUTSIDE RECORDS SUMMARY | 2025-06-19 17:10 | XMS_ITS | Encounter Summary ---
Author Organization [facility] Address [address] [place] [address] Phone Care Team Providers Care Technical Delivery Manager Name Role Phone Nii Pina MD Primary Care Provider [phone] Rosy Monroe MD Primary Care Provi albina Encounter Details Date Type Department Care Team (Late st Contact Info) Description 07/06/[address] [facility] Admitting [address] [place] [address] Leonardo Hurley MD [address] [place] [address] [address] Social History Tobacco Use Types Packs/Day Years Used Date Smoking Tobacco: Never Smokeless Tobacco: Never Alcohol Use Standard Drinks/Week Comments No 0 (1 standard drink = 0.6 oz pur e alcohol) PHQ-2 Answer Date Recorded PHQ-2 Score 0 07/05/2019 Comments No Sex and Gender Information Value Date Recorded Sex Assigned at Not on file Legal Sex Female 11:13 PM CDT Gender Identity Not on file Sexual Orientation Not on file COVID-19 Exposure Response Date Recorded In the last month, have you been in contact with someone who was confirmed or suspected to have Coronavirus / COVID-19? No / Unsure 07/08/2020 2:21 PM CDT documented as of this encounter Plan of Treatment Upcoming Encounters Date Type Department Care Team (Late Contact Info) Description 12/02/2025 9:00 AM QUANTITATIVE EQUITY HEAD Office Visit [facility] - Neurology [facility] [address] [place] [address] Santiago Orosco MD [address] [place] [address] documented as of this encounter Visit Diagnoses Not on filedocumented in this encounter Additional Health Concerns Infection Onset Date Last Indicated Resolved Time COVID - 19 Confirmed 06/16/2021 06/16/2021 021 12:16 AM CDT Assessment Noted Time PHQ-9 Depression Total Score: 0 10/05/20 19 1:11 PM QUANTITATIVE EQUITY HEAD documented as of this encounter Care Teams Technical Delivery Manager Relationship Specialty Start Date End Date Nii Pina MD PCP - General Internal Medicine 07/02/20 04/17/25 Rosy Monroe MD [address] [place] [address] [place] [address] PCP - General Family Medicine 04/18/25 documented as of this encounter
--- OUTSIDE RECORDS SUMMARY | 2025-06-19 17:10 | XMS_ITS | Encounter Summary ---
Author Organization [facility] Address [address] [place] [address] Phone Care Team Providers Care Retail Sales Representative Name Role Phone Nii Pina MD Primary Care Provider [phone] Octavio Rodriguez MD Unavailable Yobany Parsons MD Unavailable Shana Wyatt MD Unavailable No, Physician Unavailable Olive Shah PT Unavailable Unavailable Osvaldo Crenshaw NP Unavailable Rosy Monroe MD Primary Care Provi albina Encounter Details Date Type Department Care Team (Late st Contact Info) Description 11/09/2023 Documentation [facility] Orthopaedic Surgery [address] [facility] Advanced Medicine 12th [place] [address] [place] [address] Han Allison MD [address] [facility] [place] [address] Social History Tobacco Use Types Packs/Day Years [...] often do you attend chur ch or restorationism services? More than 4 times per year 03/30/2022 Do you belong to any clubs o r organizations such as muslim groups, unions, fraternal or athletic groups, or [...] making you feel afraid or unsafe? Denies 09/21/2023 Comments No Sex and Gender Information Value Date Recorded Sex Assigned at Not on file Legal Sex Female 10:56 AM POPCORN MACHINE OPERATOR Gender Identity Not on file Sexual Orientation Not on file documented as of this encounter Plan of Treatment Not on file documented as of this encounter Visit Diagnoses Not on filedocumented in this encounter Additional Health Concerns Infection Onset Date Last Indicated Resolved Time COVID: Suspected 12/14/2023 12/14/2023 12/14/2023 12:09 PM POPCORN MACHINE OPERATOR COVID: Suspected 12/14/2023 12/14/2023 12/14/2023 6:40 PM POPCORN MACHINE OPERATOR COVID: Suspected 02/08/2024 02/08/2024 02/08/2024 5:41 PM CDT documented as of this encounter Care Teams Retail Sales Representative Relationship Specialty Start Date End Date Nii Pina MD PCP - General 07/09/20 04/14/25 Rosy Monroe MD [address] [place] [address] PCP - General Family Medicine 04/15/25 Octavio Rodriguez MD [address] [place] [address] Consulting Physician Plastic Surgery 02/02/21 Yobany Parsons MD [address] [facility] [address] [place] [address] Consulting Physician Orthopedic Surgery 03/30/22 Shana Wyatt MD [address] [facility] [address] [place] [address] Consulting Physician Allergy and Immunology 04/02/22 No, Physician 04/02/22 Olive Shah, PT Physical Therapist Physical Therapy 09/09/22 Osvaldo Crenshaw NP [address] [place] [address] [address] [place] [address] Nurse Practitioner Nurse Practitioner 04/07/23 documented as of this encounter
--- OUTSIDE RECORDS SUMMARY | 2025-06-19 17:10 | XMS_ITS | Encounter Summary ---
Author Organization [facility] Address [address] [place] [address] Phone Care Team Providers Care Slip Cover Maker Name Role Phone Nii Pina MD Primary Care Provider [phone] Rosy Monroe MD Primary Care Provi albina Encounter Details Date Type Department Care Team (Late st Contact Info) Description 06/06/2023 Telephone [facility] Oncology Services [address] [place] [address] Claire Reno, RN [place] Social History Tobacco Use Types Packs/Day Years [...] Exposure Response Date Recorded In the last 10 days, have yo u been in contact with someone who was confirmed or suspected to have Coronavirus/COVID-19? No / Unsure 06/06/2023 9:08 AM CDT documented as of this encounter Miscellaneous Notes * Telephone Encounter - Corrina Gonsalez Zhang - 06/06/2023 4:06 PM CDT The patient called to request an appointment after failing to show for her February 2023 appointment. I informed the patient that I would extend her lab orders and reschedule her once she has completed the blood work. The patient understood and will contact our office once completed. She requests to only be scheduled with Dr. Newman. documented in this encounter Plan of Treatment Upcoming Encounters Date Type Department Care Team (Late st Contact Info) Description 12/02/2025 9:00 AM PERSONAL FINANCIAL ADVISOR Office Visit [facility] - [facility] [address] [place] [address] Santiago Orosco MD [address] [place] [address] documented as of this encounter Visit Diagnoses Not on filedocumented in this encounter Additional Health Concerns Assessment Noted Time PHQ-9 Depression Total Score: 0 10/05/20 19 1:11 PM PERSONAL FINANCIAL ADVISOR documented as of this encounter Care Teams Slip Cover Maker Relationship Specialty Start Date End Date Nii Pina MD PCP - General Internal Medicine 07/02/20 04/17/25 Rosy Monroe MD [address] [place] [address] [place] [address] PCP - General Family Medicine 04/18/25 documented as of this encounter
--- OUTSIDE RECORDS SUMMARY | 2025-06-19 17:10 | XMS_ITS | Continuity of Care Document ---
Author Organization [facility] Address [address] [place] [address] Phone Care Team Providers Care Supplier Engineer Name Role Phone Kushal Mtz MD Unavailable Unavailable Advance Directives Directive Yes / No Effective Date File Name No Information Encounters Encounter Description Practice Location Reason(s) For Visit Diagnoses Date Provider Providers Copied on Encounter [facility], [address] [place], [place] [address], [id number], [place] tel:[phone] [facility] No Information Smith Fatima. [address] [place], [place], [id number], [place]. tel:[phone] Family History Family Member Type Diagnosis Age At Onset No Information Payers Payer name Insurance type Covered libertarian ID Authoriza tion(s) No Information Social History Type Description Quantity Date Captured Comments Sex Female Smoking Status No Information Chief Complaint And Reason For Visit No Information Plan Of Treatment Date Type Action Status No Information History Of Present Illness Encounter Date Complaint History Of Prese nt Illness No Information Instructions Date Instruction Additional Infor mation No Information Assessments Type Assessment Date No Information
--- OUTSIDE RECORDS SUMMARY | 2025-06-19 17:10 | XMS_ITS | Encounter Summary ---
Author Organization [facility] Address [address] [place] [address] Care Team Providers Care Frit Burner Name Role Phone Unknown, Provider Primary Care Provider Unavaila ble Nii Pina MD Primary Care Provider [phone] Pcp, None Primary Care Provider Unavailabl e None, Physician Primary Care Provider Unavailabl e Nii Pina MD Primary Care Provider [phone] Encounter Details Date Type Department Care Team (Late st Contact Info) Description 05/26/2020 [facility] Outpatient Visit [facility] [address] [place] [address] Elias Cao MD [address] [facility] [place] [address] Social History Tobacco Use Types Packs/Day Years Used Date Smoking Tobacco: Never Smokeless Tobacco: Never Alcohol Use Standard Drinks/Week Comments No 0 (1 standard drink = 0.6 oz pur e alcohol) Comments No Sex and Gender Information Value Date Recorded Sex Assigned at Not on file Legal Sex Female 12:58 PM LICENSE ISSUER Gender Identity Not on file Sexual Orientation Not on file documented as of this encounter Functional Status * Is person deaf or have serious hearing difficulty? Answer Date of Assessment Author No 06/20/2019 4:25 PM José Miguel Barney RN * Is person blind or have serious difficulty seeing? Answer Date of Assessment Author No 06/20/2019 4:25 PM José Miguel Barney RN * Does person have serious difficulty walking/climbing stairs? Answer Date of Assessment Author No 06/20/2019 4:25 PM José Miguel Barney RN * Does person have difficulty dressing/bathing? Answer Date of Assessment Author No 06/20/2019 4:25 PM José Miguel Barney RN * Does person have difficulty doing errands alone? Answer Date of Assessment Author No 06/20/2019 4:25 PM José Miguel Braney RN documented as of this encounter Mental Status * Does person have difficulty concentrating/remembering/making decisions? Answer Entry Date Author No 06/20/2019 4:25 PM José Miguel Barney RN documented in this encounter Plan of Treatment Not on file documented as of this encounter Goals Goal Patient Goal Type Associated Problems Recent Progress Patient-Stated? Author Mobility General No Elena Manning RN Note: Expected end date: 03/27/2020 The goal is to maintain or improve your mobility at the optimum level for you. Interventions: documented as of this encounter Visit Diagnoses Not on filedocumented in this encounter Care Teams Frit Burner Relationship Specialty Start Date End Date Unknown, Provider PCP - General 07/15/20 07/16/20 Nii Pina MD [address] [place], [place] [address] [address] PCP - General Internal Medicine 07/17/20 12/26/24 Pcp, None [address] [place] [address] PCP - General 12/27/24 01/15/25 None, Physician PCP - General 01/16/25 04/15/25 Nii Pina MD [address] [place] [address] [place] [address] PCP - General Internal Medicine 04/16/25 documented as of this encounter
--- OUTSIDE RECORDS SUMMARY | 2025-06-19 17:10 | XMS_ITS | Clinical Summary ---
Author Organization [facility] Address [address] [facility] [place] [address] Care Team Providers Care Flight Security Specialist Name Role Phone Unavailable Primary Care Provider Unavailabl e Social History Tobacco Use Types Packs/Day Years Used Date Smoking Tobacco: Never Assessed Comments Unknown Sex and Gender Information Value Date Recorded Sex Assigned at Not on file Legal Sex Female 2:12 PM CDT Gender Identity Not on file Sexual Orientation Not on file Plan of Treatment Health Maintenance Due Date Last Done Comments DTAP/TDAP/TD VACCINES (1 - Tdap) 1996 HEPATITIS B VACCINES (1 of 3 - 19+ 3-dose series) 08/07 HPV/Cotest (21-29) 1998 CERVICAL CANCER SCREENING 2007 HPV/Cotest (30-65) 2007 PAP SMEAR 2007 BREAST CANCER SCREENING 2017 COLORECTAL SCREENING 2022 Colorectal Cancer Screening 2022 FIT-DNA Q 3 years 2022 FIT/FOBT Q 1 year 2022 Flex Sig/CT Colonography Q 5 years 2022 INFLUENZA VACCINE (#1) 2025 Insurance [facility] BLUE ACCESS CHOICE
--- OUTSIDE RECORDS SUMMARY | 2025-06-19 17:10 | XMS_ITS | Continuity of Care Document ---
Author Organization [facility] Address [address] [place] [address] Phone Care Team Providers Care Retail Aide Name Role Phone Richard Sullivan OT Unavailable Procedures Procedure Date Therapeutic Activities Hot or Cold Pack Manual Therapy Neuromuscular Re-Ed Manual Therapy Neuromuscular Re-Ed Therapeutic Activities Hot or Cold Pack Manual Therapy Therapeutic Exercise Neuromuscular Re-Ed Therapeutic Activities Hot or Cold Pack Hot or Cold Pack Manual Therapy Therapeutic Exercise Neuromuscular Re-Ed Therapeutic Activities Therapeutic Activities Hot or Cold Pack Manual Therapy Therapeutic Exercise Neuromuscular Re-Ed OT Evaluation Low Complexity Therapeutic Activities Short Opponens Hand based Orthotic Mgmt and Training Advance Directives Directive Yes / No Effective Date File Name No Information Encounters Encounter Description Practice Location Reason(s) For Visit Diagnoses Date Provider Providers Copied on Encounter [facility], [address], [place], [place], [id number], [place] tel:[phone] [facility] No Information Nate Richard. . [facility], [address], [place], [place], [id number], [place] tel:[phone] [place] No Information Nate Richard. . Referring Provider: Octavio Watkins, [address], [place], [address]. tel:[phone] [facility], [address], [place], [place], [id number], [place] tel:[phone] [place] No Information Olgakeith Lockwood. . Referring Provider: Octavio Watkins, [address] [facility] [address], [place], [address]. tel:[phone] [facility], [address], [place], [place], [address], [place] tel:[phone] [facility] No Information Olgakeith Langea. . Referring Provider: Octavio Watkins, [address] [facility] [address], [place], [address]. tel:[phone] [facility], [place], [place], [address], [place] tel:[phone] [place] No Information Lenore Kareen. . Referring Provider: Octavio Watkins, [address] [facility] [address], [place], [address]. tel:[phone] [facility], [place], [place], [address], [place] tel:[phone] [place] No Information Jose Finn. . Referring Provider: Octavio Watkins, [address] [facility] [address], [place], [address]. tel:[phone] [facility], [place], [place], [address], tel:[phone] Harjinder No Information Olga [place]wood. . Referring Provider: Octavio Watkins, [facility] [facility] [address], [place], [address]. tel:[phone] Family History Family Member Type Diagnosis Age At Onset No Information Payers Payer name Insurance type Covered constitution party ID Authoriza tion(s) Med[employer] EPO WC SP WC [id number] Social History Type Description Quantity Date Captured Comments Sex Female Smoking Status No Information Chief Complaint And Reason For Visit No Information Reason For Referral Reason For Referral No Information Plan Of Treatment Date Type Action Status Referral Ordered: PCP timeframe: 1 week. (related to Overweight) ordered Referral Ordered: Weight management: Referral to physician timeframe: 1 Month. (related to Overweight) ordered Referral Ordered: PCP timeframe: 1 week. (related to Overweight) ordered Referral Ordered: Weight management: Referral to physician timeframe: 1 Month. (related to Overweight) ordered History Of Present Illness Encounter Date Complaint History Of Prese nt Illness No Information Functional Status Date Functional Assessmen t No Information Instructions Date Instruction Additional Infor mation No Information Assessments Type Assessment Date No Information Patient Care Teams Name Effective Dates (start - stop) Status Members No Information
--- OUTSIDE RECORDS SUMMARY | 2025-06-19 17:10 | XMS_ITS | Clinical Summary ---
Author Organization [facility] Address [address] [place] [address] Phone Care Team Providers Care Business Continuity Manager Name Role Phone Rosy Monroe MD Primary Care Provi albina Allergies Active Allergy Reactions Criticality Noted Date Comments Diazepam Other (see Comments) Low 03/23/2017 Night terrors and irritability Night terrors and irritability Hydrocodone Other (see Comments) Low 04/28/2018 Bad dreams Levofloxacin In D5w Unknown Levofloxacin Anaphylaxis 12/28/2013 Metronidazole Rash Medium 06/05/2018 Sulfa Antibiotics Unknown,Other (see Comments) Low Reaction: Unknown, Reaction: Stroke like symptoms Medications ergocalciferol (VITAMIN D) 93066 UNIT CapsuleIndicati ons:Vitamin D deficiency Take 1 Cap by mouth once a week. 30 Cap 3 8 Active Additional Information Patient not taking.Reported on 04/18/2025 hydrOXYzine (VISTARIL) 25 MG Capsule Take 1 Cap by mouth 3 times daily as needed for Itching. 15 Cap 0 Active Additional Information Patient taking differently: 50 mgOral 3 TIMES DAILY PRN, Itching, Reported on 11/30/2022 Multiple Vitamin (MULTIVITAMINS PO) Take by mouth. Activ e amitriptyline (ELAVIL) 10 MG Tablet Take 10 mg by mouth nightly. Active Multiple Vitamin (MULTIVITAMIN PO) Take by mouth. Activ e Active Problems Problem Noted Date Diagnosed Date DDD (degenerative disc disease), lumbar 04/18/20 19 Spinal stenosis of lumbar region 04/18/2019 Hypertension 12/07/2018 UTI (urinary tract infection) 09/04/2018 Iron deficiency 05/07/2018 Vitamin B12 deficiency 05/07/2018 Iron deficiency anemia due to chronic blood loss 03/30/2018 Flexural atopic dermatitis 10/28/2016 S/P gastric bypass 10/28/2016 Chronic bilateral low back pain without sciatica 10/28/2016 IBS (irritable bowel syndrome) Obesity Anemia Anxiety Vitamin D deficiency Resolved Problems Problem Noted Date Diagnosed Date Resolved Date Morbid obesity due to excess calories 10/28/2016 06/23/2017 Dermatitis 10/28/2016 Immunizations Immunization Administration Dates Next Due Hepatitis A Vaccine 10/12/2016,02/24/2016 Hepatitis B Vaccine 10/12/2016,03/23/2016,2015 Influenza Vaccine 03/01/2015,09/08/2013 Influenza Vaccine, Quadrivalent, PF 08/11/2018 Influenza, Injectable, Quadrivalent 10/12/2016 TDAP Vaccine 03/23/2016 Tetanus Toxoid, Unspecified Formulation 11/07/19 11 Family History Medical History Relation Name Comments Hypertension Brother Heart Disease Father Hypertension Mother Schizophrenia Mother Breast Cancer Sister Schizophrenia Sister Relation Name Status Comments Brother Father Alive Mother Alive Sister Social History Tobacco Use Types Packs/Day Years [...] on file Sexual Orientation Not on file Last Filed Vital Signs Vital Sign Reading Time Taken Comments Blood Pressure 135/94 11/30/2022 8:39 AM SEWING MACHINE REPAIRER HELPER Pulse 80 11/30/2022 8:39 AM SEWING MACHINE REPAIRER HELPER Temperature 36.2 C (97.1 F) 11/30/2022 8:39 AM SEWING MACHINE REPAIRER HELPER Respiratory Rate 20 11/30/2022 8:39 AM SEWING MACHINE REPAIRER HELPER Oxygen Saturation 98% 11/30/2022 8:39 AM SEWING MACHINE REPAIRER HELPER Inhaled Oxygen Concentration - - Weight 101.4 kg (223 lb 8 oz) 11/30/2022 8:39 AM SEWING MACHINE REPAIRER HELPER Height 170.2 cm (5' 7) 11/30/2022 8:39 AM SEWING MACHINE REPAIRER HELPER Body Mass Index 35.01 11/30/2022 8:39 AM SEWING MACHINE REPAIRER HELPER Plan of Treatment Upcoming Encounters Date Type Department Care Team (Late st Contact Info) Description 12/02/2025 9:00 AM SEWING MACHINE REPAIRER HELPER Office Visit [facility] - [facility] [address] [place] [address] Santiago Orosco MD [address] [place] [address] Health Maintenance Due Date Last Done Comments Mammogram 1977 Discussion re Starting/Frequency of Mammograms 2017 Cologuard 2022 Immunochemical Fecal Occult Blood 2022 SARS-COV-2 Immunization ( - season) 2024 Influenza Immunization (#1) 07/08/202503/2018, 10/12/2016, 03/01/2015, Additional history exists Td Immunization Every 10 Years (Adults With 1 Tdap) 03/23/2026 03/23/2016 Colonoscopy 06/25/2029 06/25/2019 Colorectal Cancer Screening 06/25/2029 Respiratory Syncytial Virus (RSV) Immunization (Adult) (1 - 1-dose 75+ series) 2052 Hepatitis B Immunization Completed 016, 03/23/2016, 02/24/2016 Hepatitis C Virus (HCV) Screening Completed 12/01/2021, 11/11/2021, 10/07/2021, Additional history exists Human Papillomavirus (HPV) Immunization Aged Out No longer eligible based on patient's age to complete this topic Meningococcal Immunization (ACWY) Aged Out No longer eligible based on patient's age to complete this topic Pneumococcal Immunization Combined Aged Out No longer eligible based on patient's age to complete this topic Rotavirus Immunization Aged Out No lo nger eligible based on patient's age to complete this topic Procedures Procedure Name Priority Date/Time Associated Diagnosis Comments HEPATITIS C ANTIBODY Routine 12/01/2021 5:04 PM SEWING MACHINE REPAIRER HELPER Encounter for other plastic and reconstructive surgery following medical procedure or healed injury from Last 3 Months or Most Recently Relevant to Health Maintenance Results * HEPATITIS C ANTIBODY (12/01/2021 5:04 PM SEWING MACHINE REPAIRER HELPER) hepatitis C antibody 0.12 <1 S/CO [facility] ARCH [id number] B 12/02/2021 3:11 PM SEWING MACHINE REPAIRER HELPER [facility] Comment: Signal/Cutoff ratio < 0.79 is Nondetected Signal/Cutoff ratio 0.80-0.99 is Grayzone Signal/Cutoff ratio > 0.99 is Detected Supplemental assays are recommended if signal/cutoff ratio is >/=1.00. Signal/cutoff ratio result >/= 5.00 is 97% predictive of positivity for recombinant immunoblot assay (RIBA) and will be reported to the [place] Department of Public [facility] as required. Blood Venipuncture / Unknown 12/01/2021 5:04 PM SEWING MACHINE REPAIRER HELPER 12/01/2021 5:11 PM SEWING MACHINE REPAIRER HELPER us Not On File Provider CHEMISTRY ORDERABLES Final Result [facility] [address] [place] [address], from Last 3 Months or Most Recently Relevant to Health Maintenance Insurance MEDICA[place] AETNA [facility] A[employer]NA [employer] CIGNA [facility] Care Teams Business Continuity Manager Relationship Specialty Start Date End Date Rosy Monroe MD [address] [place] [address] [place] [address] PCP - General Family Medicine 04/18/25
--- OUTSIDE RECORDS SUMMARY | 2025-06-19 17:10 | XMS_ITS | Continuity of Care Document ---
Author Organization [facility] Address [address] [place] [address] Phone Care Team Providers Care Lens Inserter Name Role Phone House CONSUMER SAFETY OFFICER Janet GIRALDO Unavailable Unavail able Allergies, Adverse Reactions, Alerts Substance Reaction Status Criticality No Known Allergies Active No Inform ation Medications Medication Instructions Dosage Effective Dates (start - stop) Status Comments multivitamin tablet - Active zinc 50 mg tablet - Active Ambien 10 mg tablet take 1 tablet by ora l route every day at bedtime 10 MG - Active hydroxyzine pamoate 25 mg capsule take 1 capsule by oral route every 6 hours 25 MG - Active Procedures Procedure Date Kenalog 40mg/mL Asp/Injection, Major Joint W/ Ultrasound X-ray exam knee, 4+ views Office/outpatient visit,new, mod 2021 X-ray exam shoulder complete, minimum 2 views Independent Medical Examination KASSIE Advance Directives Directive Yes / No Effective Date File Name No Information Encounters Encounter Description Practice Location Reason(s) For Visit Diagnoses Date Provider Providers Copied on Encounter [facility], [address] [facility], [place], [place], [id number], [place] tel:[phone] [facility] right knee pain (chief complaint) Complex tear of medial mensc, current injury, r knee, initUnilateral primary osteoarthritis, right knee Sep-2 2 House [facility]STAL Gonzales . [address] [facility] [address], [place], [id number] , [place]. tel: [phone] Office/outpat ient visit,new, mod [facility], [address], [id number], tel:[phone] [facility] right knee pain (chief complaint) Pain in right kneeComplex tear of medial mensc, current injury, r knee, initUnilateral primary osteoarthritis, right knee Sep-2 2 Akash Veras. [address] [facility], [address], [id number] , [place]. tel: [phone] Independent Medical Examination [facility], [address], [id number], tel:[phone] [facility] right shoulder (chief complaint) Pain in right shoulder Sep-0 1 Romie Herrmann. [address], [id number] , [place]. tel: [phone] Family History Family Member Type Diagnosis Age At Onset No Information Payers Payer name Insurance type Covered libertarian ID Authorbarbaraa sunita(s) Ricardo Diaz [id number] Social History Type Description Quantity Date Captured Comments Alcohol Use Details Unknown Caffeine Use Details Unknown Tobacco Use Status Current non-smoker Smoking Status Never smoker Sex Female Chief Complaint And Reason For Visit From encounter dated '08/04/2022 14:57'. right knee pain (chief complaint). Description: Geneva Mancilla is a 46 year old female. She presents with pain on the right side. Please see Dr. Bustos' previous note for further history, exam and details Reason For Referral Reason For Referral No Information Plan Of Treatment Date Type Action Status Referral Ordered: X-ray exam knee, 4+ views RT knee ordered History Of Present Illness Encounter Date Complaint History Of Prese nt Illness right knee pain Geneva Mancilla is a 46 year old female. She presents with pain on the right side. Please see Dr. Bustos' previous note for further history, exam and details right knee pain Geneva Mancilla is a 46 year old female. She presents with pain, crepitus and swelling on the right side. Her history is complicated by lumbar spine fusion in August, and she has some radicular/lumbar related complaints in addition to the knee. We discussed we would only be addressing the knee as I do not evaluate or treat the lumbar spine. She states that the symptoms have been acute non-traumatic and began 1 year ago. The symptoms occur constantly with intermittent worsening. Currently the patient states that the symptoms are moderate-severe. The pain is described as aching, sharp, stabbing and throbbing. The symptoms occur with activity. The patient is experiencing pain in the following location: medially and anteriorly based on the right side. She rates her current pain as 10/10. She is however in no acute distress. The symptoms are aggravated by daily activities, descending stairs, ascending stairs, standing, walking and squatting. Geneva states that the symptoms are relieved by narcotic pain meds only. In addition to right knee pain the patient is also experiencing limping, locking, giving way, night pain. right shoulder Functional Status Date Functional Assessmen t No Information Instructions Date Instruction Additional Infor matjohn Injection performed today as documented. Continue non-operative treatments as outlined previously. Follow up prn if symptoms return or worsen. Questions answered, verbalized understanding. Related to Unilateral primary osteoarthritis, right knee The patient would li ke to proceed with conservative treatments and I agree. We discussed weight control/loss, icing, NSAIDs/Tylenol, activity modifications, and physical therapy and/or home strengthening exercises as appropriate. After discussing the risks, benefits, and alternatives of an injection they would like to proceed. We will make arrangements for this. We discussed if sustained relief, we may observe and could repeat an injection if pain returns several months/years down the road. If only short term or minimal relief is obtained, then we would likely obtain an MRI to evaluate the joint in more detail and rule out meniscal pathology. We discussed an MRI is not indicated initially now, as it would not change the treatment course. The patient will follow up on an as needed basis. Questions answered, verbalized understanding. Related to Unilateral primary osteoarthritis, right knee Assessments Type Assessment Date assessment Complex tear of medial mensc, cu rrent injury, r knee, init assessment Unilateral primary osteoarthriti s, right knee Patient Care Teams Name Effective Dates (start - stop) Status Members No Information
--- OUTSIDE RECORDS SUMMARY | 2025-06-19 17:10 | XMS_ITS | Continuity of Care Document ---
Author Organization [facility] Address [address] [place] [address] Phone Care Team Providers Care Welder Name Role Phone Karlene Hernández MD Unavailable Unavailable Procedures Procedure Date Less Than 24 Hour Notice Of Appointment Cancellation Advance Directives Directive Yes / No Effective Date File Name No Information Encounters Encounter Description Practice Location Reason(s) For Visit Diagnoses Date Provider Providers Copied on Encounter [facility], [address], [place], [place], [id number], [place] tel:[phone] [address] [place] [address] No Information 2 Edgar Soler. [address] [place], [address], [place]. tel:[phone] Family History Family Member Type Diagnosis Age At Onset No Information Payers Payer name Insurance type Covered alliance party ID Authoriza tion(s) No Information Social History Type Description Quantity Date Captured Comments Sex Female Smoking Status No Information Chief Complaint And Reason For Visit No Information Reason For Referral Reason For Referral No Information History Of Present Illness Encounter Date Complaint History Of Prese nt Illness No Information Functional Status Date Functional Assessmen t No Information Instructions Date Instruction Additional Infor mation No Information Assessments Type Assessment Date No Information Patient Care Teams Name Effective Dates (start - stop) Status Members No Information
--- OUTSIDE RECORDS SUMMARY | 2025-06-19 17:11 | XMS_ITS | Clinical Summary ---
Author Organization [facility] Address [address] [place] [address] Care Team Providers Care Fence Machine Operator Name Role Phone Nii Pina MD Primary Care Provider [phone] Source Comments [facility],non-owned Affiliates and Associated Physician Practices is amultiple site organization consisting of ambulatory clinics and hospital sitesin [place], [place], [place] and [place]. This disclosure is being madepursuant to the Care Everywhere program and may not contain all information available regarding this patient. Last updated 18.[facility] Allergies Active Allergy Reactions Criticality Noted Date Comments Acetaminophen-Codeine Urticaria High 01/05/2023 Caused impaction resulting in hospitalization Diazepam Low 03/23/2017 Other reaction(s): Other (See comments) Night terrors and irritability Hydrocodone Other 06/16/2019 Nightmares Hydromorphone Anaphylaxis High 03/29/2022 Levofloxacin Neuropathy,Numbness High 11/15/2011 Stroke like symptoms Meperidine Anaphylaxis High 04/06/2022 Metronidazole Rash Medium 06/05/2018 Sulfa Drugs Other,Unknown Low Other reaction(s): Other (See comments) Reaction: Unknown, Reaction: Unknown, Reaction: Stroke like symptoms Medications * Be aware that medications may not be up to date on this document. Alwaysverify current medications with the patient. JTIRO-ZAYGETJ-Z INERALS (RESOURCE OPTISOURCE MUTLIPLE VITAMIN WITH MINERALS) CHEWIndications :Hyperparathyro idism (HCC) Take 1 tablet by mouth once daily 7 Active Additional Information Patient not taking.Reported on 04/16/2025 magnesium hydroxide (Milk Of Magnesia) 400 MG/5ML suspension Take 15 mL by mouth as needed for Constipation 4 Active Additional Information Patient not taking.Reported on 04/16/2025 omeprazole (PriLOSEC) 20 MG capsule TAKE 1 CAPSULE BY MOUTH EVERY DAY BEFORE BREAKFAST 90 capsule 1 5 Active Additional Information Patient not taking.Reported on 04/16/2025 Melatonin 10 MG Take 10 (ten) mg by mouth nightly as needed (insomnia) Active docusate sodium (Colace) 100 MG capsule Take 1 (one) capsule by mouth 2 times daily as needed for Constipation (relief of difficult bowel movements) 5 Active Additional Information Patient not taking.Reported on 04/16/2025 magnesium hydroxide (Milk Of Magnesia) 400 MG/5ML suspension Take 15 mL by mouth as needed for Constipation 5 Active Additional Information Patient not taking.Reported on 04/16/2025 ondansetron, disintegrating, (Zofran ODT) 4 MG tablet Take 1 (one) tablet by mouth every 6 hours as needed for Nausea/Vomiting Allow tablet to dissolve on the tongue 20 tablet 01/18/2025 6:09 PM CDT 5 Active Additional Information Patient not taking.Reported on 04/16/2025 amitriptyline (Elavil) 25 MG tablet Take 1 (one) tablet by mouth every evening 90 tablet 4 02/12/2025 12:25 PM CDT 5 Active Additional Information Patient not taking.Reported on 04/16/2025 oxyCODONE (Roxicodone) 5 MG/5ML oral solutionIndicat ions:Intestinal obstruction, unspecified cause, unspecified whether partial or complete (HCC) Take 5 mL by mouth every 4 hours as needed 120 mL 02/12/2025 12:25 PM CDT 5 Active Additional Information Patient not taking.Reported on 04/16/2025 methocarbamol (Robaxin) 750 MG tablet Take 1 (one) tablet by mouth every 8 hours as needed for Muscle Spasms 30 tablet 2 02/12/2025 12:25 PM CDT 5 Active Additional Information Patient not taking.Reported on 04/16/2025 linaCLOtide (Linzess) 145 MCG capsule Take 1 (one) capsule by mouth daily before breakfast. Take on an empty stomach at least 30 minutes prior to first meal of the day. 90 capsule 3 02/12/2025 12:25 PM CDT Active Additional Information Patient not taking.Reported on 04/16/2025 Active Problems Problem Noted Date Diagnosed Date Abdominal pain, unspecified abdominal location 0 01/16/2025 Assessment & Plan (01/16/2025 6:33 PM CDT): Present on admission Lab workup is unremarkable Patient with history of volvulus CT demonstrated inflammatory changes adjacent to the ascending colon General surgery consulted Plan on diagnostic laparoscopy today IV fluids NPO PPI IV while patient is NPO Further management depends upon procedure results Intestinal obstruction, unsp ecified cause, unspecified whether partial or complete 10/16/2024 Mixed anxiety and depressive disorder 07/31/2024 Postlaminectomy syndrome, lumbar 01/03/2023 Lumbar radiculopathy 08/12/2022 Abdominal pain, generalized 07/15/2020 H/O gastric bypass 07/15/2020 Assessment & Plan (01/16/2025 6:33 PM CDT): General surgery consulted PPI IV while NPO. Change to oral when patient able to take oral medications. Anemia 05/26/2020 Anxiety 05/26/2020 Vitamin D deficiency 05/26/2020 Chronic abdominal pain 06/17/2019 DDD (degenerative disc disease), lumbar 04/18/20 19 Spinal stenosis of lumbar region 04/18/2019 Herpes simplex 03/29/2019 Overview (12/27/2024): Herpes simplex infection;Recorded Elsewhere: No Location: [facility] Source: EHR Chronic: N Practice ID: [id number] Billable Time: 05:30:00 PM Increased frequency of urination 01/03/2019 Overview (12/27/2024): Urinary frequency;Recorded Elsewhere: No Location: [facility] Source: EHR Chronic: N Practice ID: [id number] Billable Time: 04:00:00 PM Hypertension 12/07/2018 Iron deficiency 05/07/2018 Vitamin B12 deficiency 05/07/2018 Pelvic and perineal pain 05/30/2017 Overview (12/27/2024): Pelvic and perineal pain;Recorded Elsewhere: No Location: [facility] Source: EHR Chronic: N Practice ID: [id number] Billable Time: 05:00:00 PM Hunger 04/22/2017 Chronic bilateral low back pain without sciatica 10/28/2016 Flexural atopic dermatitis 10/28/2016 S/P gastric bypass 10/28/2016 Microscopic hematuria 09/12/2016 Overview (12/27/2024): Other microscopic hematuria;Recorded Elsewhere: No Location: [facility] Source: EHR Chronic: N Practice ID: [id number] Billable Time: 11:30:00 AM Epigastric abdominal pain 07/23/2016 Irritable bowel syndrome without diarrhea 2015 Iron deficiency anemia 12/13/2014 Leukocytosis 06/12/2014 Overview (12/27/2024): LEUKOCYTOSIS NOS;Recorded Elsewhere: No Location: [facility] Source: EHR Chronic: N Practice ID: [id number] Billable Time: 01:30:00 PM Leukorrhea 06/12/2014 Overview (12/27/2024): Leukorrhea, not specified as infective;Recorded Elsewhere: No Location: [facility] Source: EHR Chronic: N Practice ID: [id number] Billable Time: 01:30:00 PM Dyspareunia in female 01/23/2014 Overview (12/27/2024): Dyspareunia;Recorded Elsewhere: No Location: [facility] Source: EHR Chronic: N Practice ID: [id number] Billable Time: 08:30:00 AM Carpal tunnel syndrome 05/01/2012 Morbid obesity Arthropathies Bilateral sacroiliitis Resolved Problems Problem Noted Date Diagnosed Date Resolved Date UTI (urinary tract infection) 09/04/2018 06/09/2020 Encounters Date Type Department Care Team Description 04/16/2025 10:00 AM CDT Office Visit [facility] - General Surgery [address] [place] [address] [place] oLve MD Chronic constipation (Primary Dx) 04/16/2025 Travel from Last 3 Months Immunizations Immunization Administration Dates Next Due INFLUENZA VACCINE 09/08/2013 INFLUENZA VACCINE, TRIV. (FL UZONE; FLULAVAL; FLUARIX; AFLURIA TRIVALENT; 6MO+), 0.5 ML (IIV3) 03/01/2015 Family History Medical History Relation Name Comments Hypertension Brother CAD (Coronary Artery Disease) Father Diabetes Father None Known Maternal Grandfather None Known Maternal Grandmother Hypertension Mother None Known Paternal Grandfather None Known Paternal Grandmother Diabetes Sister Relation Name Status Comments Brother Father Unknown Maternal Grandfather Maternal Grandmother Mother Alive Paternal Grandfather Paternal Grandmother Sister Alive Social History Tobacco Use Types Packs/Day Years Used Date Smoking Tobacco: Never Passive Smoke Exposure: Never Smokeless Tobacco: Never Alcohol Use Standard Drinks/Week Comments No 0 (1 standard drink = 0.6 oz pur e alcohol) AUDIT-C Answer Date Recorded Q1: How often do you have a drink containing alcohol? Never 10/19/2024 Q2: How many drinks containi ng alcohol do you have on a typical day when you are drinking? Patient does not drink Q3: How often do you have si x or more drinks on one occasion? Never 10/19/2024 Overall Financial Resource Strain (CARDIA) Answe r Date Recorded How hard is it for you to pa y for the very basics like food, housing, medical care, and heating? Not hard at all 10/19/2024 [facility] - Occupational Stress Questionnaire Answer Date Recorded Do you feel stress - tense, restless, nervous, or anxious, or unable to sleep at night because your mind is troubled all the time - these days? To some extent 10/19/2024 Hunger Vital Sign Answer Date Recorded Within the past 12 months, y ou worried that your food would run out before you got the money to buy more. Never true 10/19/20 24 Within the past 12 months, t he food you bought just didn't last and you didn't have money to get more. Never true 10/19/2024 PRAPARE - Transportation Answer Date Re corded In the past 12 months, has l ack of transportation kept you from medical appointments or from getting medications? No 10/07 In the past 12 months, has l ack of transportation kept you from meetings, work, or from getting things needed for daily living? No 10/19/2024 Housing Stability Vital Sign Answer Alexx e Recorded In the last 12 months, was t here a time when you were not able to pay the mortgage or rent on time? No 10/19/2024 In the past 12 months, how m any times have you moved where you were living? 1 10/19/2024 At any time in the past 12 m [facility], were you homeless or living in a halfway (including now)? No 10/19/2024 Comments No Sex and Gender Information Value Date Recorded Sex Assigned at Not on file Legal Sex Female 12:58 PM VOICE COACH Gender Identity Not on file Sexual Orientation Not on file Last Filed Vital Signs Vital Sign Reading Time Taken Comments Blood Pressure 128/85 04/16/2025 10:09 AM CDT Pulse 62 04/16/2025 10:09 AM CDT Temperature 35.8 C (96.5 F) 04/16/2025 10:09 AM CDT Respiratory Rate 17 01/18/2025 7:11 PM CDT Oxygen Saturation 100% 04/16/2025 10:09 AM CDT Inhaled Oxygen Concentration - - Weight 79.9 kg (176 lb 3.2 oz) 04/16/2025 10:09 AM CDT Height 172.7 cm (5' 8) 04/16/2025 10:09 AM CDT Body Mass Index 26.79 04/16/2025 10:09 AM CDT Plan of Treatment Health Maintenance Due Date Last Done Comments COLOGUARD (AGES 45-75) - COLON CA SCREENING 1977 CT COLONOGRAPHY - COLON CA SCREENING 1975 FIT - COLON CA SCREENING 1975 FLEX SIG - COLON CA SCREENING 1975 HEPATITIS C SCREENING 08/15/1995 DTAP/TDAP/TD VACCINES (1 - Tdap) 1996 HEPATITIS B VACCINE (1 of 3 - 19+ 3-dose series) 1996 MAMMOGRAM 06/29/2024 06/29/2022, 06/08, 08/06/2020, Additional history exists COVID-19 VACCINE ( - season) 2024 DEPRESSION SCREENING 11/07/2024 INFLUENZA VACCINE (#1) 2025 8, 10/12/2016, 03/01/2015, Additional history exists ZOSTER VACCINE (1 of 2) 2027 PAP SMEAR 10/10/2027 10/10/2024, 12/02/2024, 02/06/2014 SCREENING FOR DIABETES 01/18/2028 5, 01/16/2025, 01/16/2025, Additional history exists COLON MONITORING 06/25/2029 06/25/2019, 06/25/2019 COLONOSCOPY - COLON CA SCREENING 06/25/2029 06/25/2019, 06/25/2019 Colorectal Cancer Screening 06/25/2029 LIPID TESTING 10/10/2029 10/10/2024, 05/17/2019 HIV SCREENING Completed 10/10/2024, 07/15/2020 HIB VACCINE Aged Out No longer eligi ble based on patient's age to complete this topic HPV VACCINE Aged Out No longer eligi ble based on patient's age to complete this topic MENINGOCOCCAL (Group B) VACCINE SHARED DECISION-MAKING Aged Out No longer eligible based on patient's age to complete this topic MENINGOCOCCAL GROUPS A/C/Y/W VACCINE Aged Out No longer eligible based on patient's age to complete this topic PNEUMOCOCCAL VACCINE Aged Out No long er eligible based on patient's age to complete this topic Goals Goal Patient Goal Type Associated Problems Recent Progress Patient-Stated? Author Mobility General No Elena Manning, RN Note: Expected end date: 03/27/2020 The goal is to maintain or improve your mobility at the optimum level for you. Interventions: Procedures Procedure Name Priority Date/Time Associated Diagnosis Comments BASIC METABOLIC PANEL (CALCIUM TOTAL) Routine 01/17/2025 3:10 AM CDT Abdominal pain, unspecified abdominal location HIV-1 HIV-2 ANTIBODY + HIV P24 AG PANEL STAT 07/15/2020 3:12 PM CDT ENDOSCOPY, COLON, DIAGNOSTIC Routine 06/25/2019 7:10 AM CDT from Last 3 Months or Most Recently Relevant to Health Maintenance Results * (ABNORMAL) BASIC METABOLIC PANEL (CALCIUM TOTAL) (01/17/2025 3:10 AM CDT) Glucose 122(H) 70 - 99 mg/dL 01/17/2025 3:38 AM CDT [facility] Sodium 139 136 - 145 mmol/L 01/17/2025 3:38 AM CDT [facility] Potassium 4.0 3.5 - 5.1 mmol/L 01/17/2025 3:38 AM CDT [facility] Chloride 109(H) 98 - 107 mmol/L 01/17/2025 3:38 AM CDT [facility] CO2 21(L) 22 - 29 mmol/L 01/17/2025 3:38 AM CDT [facility] Calcium 8.7 8.4 - 10.4 mg/dL 01/17/2025 3:38 AM CDT [facility] Anion Gap 9 6 - 16 mmol/L 01/17/2025 3:38 AM CDT [facility] BUN 10 5.3 - 18.7 mg/dL 01/17/2025 3:38 AM CDT [facility] Creatinine 0.75 0.57 - 1.11 mg/dL 01/17/2025 3:38 AM CDT [facility] eGFR by CKD-EPI >90 >=90 mL/min/1.7 3 m2 01/17/2025 3:38 AM CDT [facility] Blood BLOOD SPECIMEN / Unknown Venipuncture / Unknown 01/17/2025 3:10 AM CDT 01/17/2025 3:14 AM CDT Jer Mcmanus MD LAB - CHEMISTRY ORDERABLE S Final Result [facility] [address] [place] [address] * HIV-1 HIV-2 ANTIBODY + HIV P24 AG PANEL (07/15/2020 3:12 PM CDT) Pathologist [facility] HIV1/2 Ab + P24 Ag Non Reactive Non Reactive 07/15/2020 4:53 PM CDT [facility] Blood BLOOD SPECIMEN / Unknown 07/15/2020 3:12 PM CDT 07/15/2020 4:22 PM CDT Narrative [facility] - 07/15/2020 4:53 PM CDT No Laboratory evidence of HIV infection. us Warner Cleveland DO LAB - CHEMISTRY ORDERABLES Fin al Result [facility] [address] [facility] [place] [address] * ENDOSCOPY, COLON, DIAGNOSTIC (06/25/2019 7:10 AM CDT) Report Endoscopy POC _ Patient Name: Liya Christine Procedure Date: 06/25/2019 7:10 AM Date of : 1975 Admit Type: Inpatient Age: 43 Gender: Female Attending MD: Davin Abarca MD _ Procedure: Colonoscopy Indications: Generalized abdominal pain, Abnormal CT of the GI tract, Change in bowel habits, Constipation Providers: Davin Abarca MD (Doctor) Referring MD: Rafael Rojo MD (Referring MD) Medicines: Monitored Anesthesia Care Complications: No immediate complications. Estimated blood loss: None. _ Procedure: Pre-Anesthesia Assessment: - Prior to the procedure, a History and Physical was performed, and patient medications and allergies were reviewed. The patient is competent. The risks and benefits of the procedure and the sedation options and risks were discussed with the patient. All questions were answered and informed consent was obtained. Patient identification and proposed procedure were verified by the physician, the nurse and the belly dancer in the procedure room. Mental Status Examination: alert and oriented. Airway Examination: normal oropharyngeal airway and neck mobility. Respiratory Examination: clear to auscultation. CV Examination: normal. Prophylactic Antibiotics: The patient does not require prophylactic antibiotics. Prior Anticoagulants: The patient has taken no previous anticoagulant or antiplatelet agents. ASA Grade Assessment: II - A patient with mild systemic disease. After reviewing the risks and benefits, the patient was deemed in satisfactory condition to undergo the procedure. The anesthesia plan was to use monitored anesthesia care (MAC). Immediately prior to administration of medications, the patient was re-assessed for adequacy to receive sedatives. The heart rate, respiratory rate, oxygen saturations, blood pressure, adequacy of pulmonary ventilation, and response to care were monitored throughout the procedure. The physical status of the patient was re-assessed after the procedure. After I obtained informed consent, the scope was passed under direct vision. Throughout the procedure, the patient's blood pressure, pulse, and oxygen saturations were monitored continuously. The Colonoscope was introduced through the anus and advanced to the cecum, identified by appendiceal orifice and ileocecal valve. The colonoscopy was performed without difficulty. The patient tolerated the procedure well. The quality of the bowel preparation was good. The terminal ileum, ileocecal valve, appendiceal orifice, and rectum were photographed. Findings: The digital rectal exam was normal. Pertinent negatives include no palpable rectal lesions. The rectum, sigmoid colon, descending colon, transverse colon, ascending colon, cecum, appendiceal orifice and ileocecal valve appeared normal. The terminal ileum appeared normal. _ Impression: - The rectum, sigmoid colon, descending colon, transverse colon, ascending colon, cecum, appendiceal orifice and ileocecal valve are normal. - The examined portion of the ileum was normal. - No specimens collected. Recommendation: - Repeat colonoscopy at age 52 for surveillance. - No evidence to support colonic obstruction or cecal volvulus. - Defer consideration of laproscopy to surgery. Discussed findings with Dr Rojo - Put patient on a clear liquid diet starting today. - Continue present medications. - Return patient to [facility] for ongoing care. Procedure Code(s): --- Professional --- 01044, Colonoscopy, flexible; diagnostic, including collection of specimen(s) by brushing or washing, when performed (separate procedure) --- Technical --- 45267, Colonoscopy, flexible; diagnostic, including collection of specimen(s) by brushing or washing, when performed (separate procedure) Diagnosis Code(s): --- Professional --- R10.84, Generalized abdominal pain R19.4, Change in bowel habit K59.00, Constipation, unspecified R93.3, Abnormal findings on diagnostic imaging of other parts of digestive tract --- Technical --- R10.84, Generalized abdominal pain R19.4, Change in bowel habit K59.00, Constipation, unspecified R93.3, Abnormal findings on diagnostic imaging of other parts of digestive tract CPT copyright 2017 [employer]. All rights reserved. The codes documented in this report are preliminary and upon certified procedural coder review may be revised to meet current compliance requirements. Dr. Davin Abarca MD Davin Abarca MD 06/25/2019 7:57:57 AM This report has been signed electronically. Number of Addenda: 0 Note Initiated On: 06/25/2019 7:10 AM [facility] 06/25/2019 7:10 AM CDT us Davin Abarca MD GI PROCEDURE ORDERABLES Jan cele Result - Final [facility] [place] [id number] from Last 3 Months or Most Recently Relevant to Health Maintenance Insurance MEDICAID - [place] CIGNA AETNA CIGNA MEDICAID - [facility] Advance Directives * Full Code (Latest Code Status on File) Date Activated Date Inactivated Comments 01/16/2025 1:24 PM 01/18/2025 8:43 PM * Full Code Date Activated Date Inactivated Comments 01/16/2025 10:36 AM 01/16/2025 1:24 PM * Full Code Date Activated Date Inactivated Comments 10/17/2024 1:35 AM 10/19/2024 6:28 PM * Full Code Date Activated Date Inactivated Comments 10/16/2024 11:13 PM 10/17/2024 1:35 AM * Full Code Date Activated Date Inactivated Comments 07/16/2020 1:04 AM 07/25/2020 7:18 PM Care Teams Fence Machine Operator Relationship Specialty Start Date End Date Nii Pina MD [address] [place] [address] Dr Mcginnis [address] [place] [phone] PCP - General Internal Medicine 04/16/25
--- OUTSIDE RECORDS SUMMARY | 2025-06-19 17:13 | XMS_ITS | Continuity of Care Document ---
Author Organization [facility] Address [address] [address] [facility] [address] [place] [address] Phone Care Team Providers Care Pulper Tender Name Role Phone Karlene Hernández MD Unavailable Unavailable Procedures Procedure Date Less Than 24 Hour Notice Of Appointment Cancellation Advance Directives Directive Yes / No Effective Date File Name No Information Encounters Encounter Description Practice Location Reason(s) For Visit Diagnoses Date Provider Providers Copied on Encounter [facility], [address], [place], [place], [id number], [place] tel:[phone] [address] [place] [address] No Information 2 Edgar Soler. [address] [place], [address], [place]. tel:[phone] Family History Family Member Type Diagnosis Age At Onset No Information Payers Payer name Insurance type Covered constitution party ID Authoriza tion(s) No Information Social [...]
--- OUTSIDE RECORDS SUMMARY | 2025-06-19 17:13 | XMS_ITS | Continuity of Care Document ---
Author Organization [facility] Address [address] [place] [address] Phone Care Team Providers Care Arts Therapist Name Role Phone House BOW REPAIRER CUSTOM Janet GIRALDO Unavailable Unavail able Allergies, Adverse [...] Provider Providers Copied on Encounter [facility], [address] [facility], [place], [place], [id number], [place] tel:[phone] [facility] right knee pain (chief complaint) Complex tear of medial mensc, current injury, r knee, initUnilateral primary osteoarthritis, right knee Sep-2 2 House KRISTAL Gonzales . [address] [facility] [facility] [address], [place], [id number] , [place]. tel: [phone] Office/outpat ient visit,new, mod [facility], [address], [id number], tel:[phone] [facility] right knee pain (chief complaint) Pain in right kneeComplex tear of medial mensc, current injury, r knee, initUnilateral primary osteoarthritis, right knee Sep-2 2 Akash Veras. [address] [facility] [address] [address] [facility], [address], [id number] , [place]. tel: [phone] Independent Medical Examination [facility], [address], [id number], tel:[phone] [facility] right shoulder (chief complaint) Pain in right shoulder Sep-0 1 Romie Herrmann. [address], [id number] , [place]. tel: [phone] Family History Family Member Type Diagnosis Age At Onset No Information Payers Payer name Insurance type Covered democrat ID Authorbarbaraa sunita(s) Ricardo Diaz [id number] Social History Type Description Quantity Date Captured [...]
--- OUTSIDE RECORDS SUMMARY | 2025-06-19 17:13 | XMS_ITS | Continuity of Care Document ---
Author Organization [facility] Address [address] [place] [address] Phone Care Team Providers Care Lease Buyer Name Role Phone Richard Sullivan OT Unavailable Procedures Procedure Date Therapeutic Activities Neuromuscular Re-Ed Manual Therapy Hot or Cold Pack Therapeutic Activities Neuromuscular Re-Ed Manual Therapy Hot or Cold Pack Therapeutic Activities Neuromuscular Re-Ed Therapeutic Exercise Manual Therapy Hot or Cold Pack Therapeutic Activities Neuromuscular Re-Ed Therapeutic Exercise Manual Therapy Hot or Cold Pack Therapeutic Activities Neuromuscular Re-Ed Therapeutic Exercise Manual Therapy Hot or Cold Pack OT Evaluation Low Complexity Therapeutic Activities Orthotic Mgmt and Training Short Opponens Hand based Advance Directives Directive Yes / No Effective Date File Name No Information Encounters Encounter Description Practice Location Reason(s) For Visit Diagnoses Date Provider Providers Copied on Encounter [facility], [address], [place], [place], [id number], [place] tel:[phone] [facility] No Information Nate Richard. . [facility], [address], [place], [place], [address], [place] tel:[phone] [place] No Information Nate Richard. . Referring Provider: Octavio Watkins, [address], [place], [address]. tel:[phone] [facility], [address], [place], [place], [address], [place] tel:[phone] [place] No Information Olgakeith Lockwood. . Referring Provider: Octavio Watkins, [address], [place], [address]. tel:[phone] [facility], [address], [place], [place], [address], [place] tel:[phone] [facility] No Information Olgakeith Langea. . Referring Provider: Octavio Watkins, [address], [place], [address]. tel:[phone] [facility], [place], [place], [address], [place] tel:[phone] [place] No Information Lenore Kareen. . Referring Provider: Octavio Watkins, [address], [place], [address]. tel:[phone] [facility], [place], [place], [address], [place] tel:[phone] [place] No Information Jose Finn. . Referring Provider: Octavio Watkins, [address], [place], [address]. tel:[phone] [facility], [place], [place], [address], tel:[phone] [facility] No Information Olga Lockwood. . Referring Provider: Octavio Watkins, [facility], [place], [address]. tel:[phone] Family History Family Member Type Diagnosis Age At Onset No Information Payers Payer name Insurance type Covered green party ID Authoriza tion(s) [employer] EPO WC SP WC [id number] Social History Type Description Quantity Date Captured [...]
--- OUTSIDE RECORDS SUMMARY | 2025-06-19 17:13 | XMS_ITS | Continuity of Care Document ---
Author Organization [facility] Address [address] [place] [address] Phone Care Team Providers Care Platen Grinder Name Role Phone Kushal Mtz MD Unavailable Unavailable Advance Directives Directive Yes / No Effective Date File Name No Information Encounters Encounter Description Practice Location Reason(s) For Visit Diagnoses Date Provider Providers Copied on Encounter [facility], [address] [place], [place] [address], [id number], [place] tel:[phone] [facility] No Information Smith Fatima. [address] [place], [place], [address], [place]. tel:[phone] Family History Family Member Type Diagnosis Age At Onset No Information Payers Payer name Insurance type Covered green party ID Authoriza tion(s) No Information Social [...]
--- NOTE | 2025-06-19 17:14 | ED.FEMALEGU ---
HPI - Female Genitourinary General Chief complaint: Urogenital-Female Stated complaint: female issues Time Seen by Provider: 06/19/25 17:22 Source: patient Mode of arrival: ambulatory Limitations: no limitations History of Present Illness HPI Narrative: Geneva is a 49 year old female patient presenting to the clinic today with complaints of green vaginal discharge, genital discomfort, and some itching. She reports symptoms started 3 days ago. Vaginal discharge in slightly odorous. Concerned about a sexually transmitted infection as her partner's condom broke while they were having intercourse. States last intercourse was on Tuesday. Also has used a new soap and has a history of bacterial vaginosis. Partner denies any symptoms. She is concerned that her partner may have other partners. Last menstrual period was May 25. Denies any fevers, chills, body aches, abdominal pain, nausea, vomiting, or back pain. Related Data Allergies Allergy/AdvReac Type Severity Reaction Status Date / Time Sulfa (Sulfonamide Allergy Severe Hives Verified 06/19/25 17:18 Antibiotics) hydrocodone Allergy Mild Itching Verified 06/19/25 17:18 diazepam Allergy Unknown Hallucinati Verified 06/19/25 17:18 ng hydromorphone (From Dilaudid) Allergy Anaphylaxis Verified 06/19/25 17:18 levofloxacin AdvReac Severe Stroke Verified 06/19/25 17:18 like symptoms RASH metronidazole (From Flagyl) AdvReac Nausea and Verified 06/19/25 17:18 Vomiting Review of Systems Review of Systems: Pertinent positives per HPI. Patient denies any fever, chills, rash, headache, visual changes, dizziness, cough, runny nose, sore throat, shortness of breath, chest pain, palpitations, nausea, vomiting, diarrhea, constipation, abdominal pain, or any urinary issues. [facility] Past Medical History Medical History Anxiety Elective x1 HSV (herpes simplex virus) infection Type 1 and Type 2 Hypertension Missed x1 2009 PCOS (polycystic ovarian syndrome) Surgical History Surgical History Gastric bypass status for obesity 2011 H/O section X3 12/06/91, c/s, F, 6#7, Toxemia 09/21/06, c/s, M, 7# 11/21/09, c/s, M, 7# History of abdominoplasty History of appendectomy History of cholecystectomy 2013 History of left salpingo-oophorectomy History of repair of hiatal hernia Family History Family History Father Alive and well Mother Schizophrenia Social History Social History Smoking status: Never smoker Second hand tobacco smoke exposure: No Alcohol intake: never Substance use: never Living arrangements: with family Occupation/Education: occupation Gender identity (if verbalized by the patient): Female Sexual Orientation (if Verbalized by the Patient): Straight or Heterosexual Spiritual care concerns: No Comments At the time of my signature, I reviewed and agree with the nursing past medical, surgical, social, and family history. There is no relevant family history pertinent to the patient complaint. Exam Narrative: General: Well-developed, well nourished, in no apparent distress Head: Normocephalic, atraumatic. Cardio: Regular rate and rhythm, s1 and s2 normal, no murmur appreciated. Resp: Clear to auscultation bilaterally, no rhonchi, rales, wheezing or rubs. Abdomen: Soft, pliable, bowel sounds present in all quadrants, non-tender to palpation, no CVAT tenderness. : Deferred-patient self swab Course Course Emergency Course: Portions of this record may have been created with voice recognition software. Level of Care: Express Care Visit Vital Signs Vital signs: Vital Signs Temperature 36.6 C 06/19/25 17:15 Pulse Rate 100 06/19/25 17:15 Respiratory Rate 18 06/19/25 17:15 Blood Pressure 120/78 06/19/25 17:15 Pulse Oximetry 100 06/19/25 17:15 Oxygen Delivery Room Air 06/19/25 17:15 Temperature 36.6 C 06/19/25 17:15 Pulse Rate 100 06/19/25 17:15 Respiratory Rate 18 06/19/25 17:15 Blood Pressure 120/78 06/19/25 17:15 Pulse Oximetry 100 06/19/25 17:15 Oxygen Delivery Room Air 06/19/25 17:15 Vital signs reviewed MDM - Female Genitourinary MDM Narrative Medical decision making narrative: At the time of visit patient is resting comfortably on the exam table. Patient appears to be nontoxic. Complaints of vaginal discharge, genital discomfort, and some itching. She reports symptoms started 3 days ago. Concerned about a sexually transmitted infection as her partner's condom broke while they were having intercourse. States last intercourse was on Tuesday. Also has used a new soap and has a history of bacterial vaginosis. States partner is not complaining of any symptoms. She is concerned that her partner may have other partners. LMP was May 25. Denies any fevers, chills, body aches, abdominal pain, nausea, vomiting, or back pain. Labs for bedside , general culture, bacterial vaginosis, chlamydia, gonorrhea, and Trichomonas was ordered. Rocephin 500 mg mixed with lidocaine IM ordered Medications: Rocephin 500mg mixed with lidocaine IM given Labs: Bedside test negative in the clinic today, dirty urine was sent to test for chlamydia, gonorrhea, and Trichomonas. Patient self swab for bacterial vaginosis and genital culture. Plan: Patient has purulent vaginal discharge with concern of STI versus bacterial vaginosis. Rocephin 500 mg were lidocaine IM given in the clinic today. Will send in prescription for doxycycline, Flagyl, and Diflucan. Patient reports she gets yeast infections when taking antibiotics. Supportive measures were discussed with the patient and they voiced understanding discharge instructions and agrees to treatment plan. Return precautions reviewed Differential Diagnosis Differential diagnosis: Likely bacterial vaginosis, trichomoniasis, cervicitis, vaginitis and other (STI infection, yeast infection) Discharge Plan Discharge Clinical Impression: Purulent vaginal discharge, Encounter for screening examination for sexually transmitted infection Patient Disposition: Home Condition: Stable Instructions: Antibiotic Form, Sexually Transmitted Diseases (ED), Safe Sex Practices (ED), Vaginal Discharge (ED) Additional Instructions: Rocephin 500 mg IM given in the clinic today Take doxycycline, fluconazole, and Flagyl as prescribed We have tested/treated you for STIs in the clinic today. Testing for chlamydia, gonorrhea, Trichomonas, bacterial vaginosis, and genital culture was sent to the lab Avoid any sexual activity- includes oral, anal, or vaginal intercourse until you get results back and have completed any additional recommended treatment regimens. We will contact you if testing is positive and make sure your treatment was appropriate for the type of STI. If symptoms worsen after treatment recommend reevaluation with your PCP or STI clinic Patient Language: Faroese Prescriptions: New fluconazole 150 mg tablet 150 mg PO ONCE Qty: 2 0RF Rx Instructions: as a single dose. May repeat in 72 hours if needed. doxycycline monohydrate 100 mg capsule 100 mg PO BID 7 Days Qty: 14 0RF metronidazole 500 mg tablet 500 mg PO BID 7 Days Qty: 14 0RF Follow-up/Referrals: Jamie Gomez MD [Primary Care Provider] - Time of Disposition: 17:38 Quality NIHSS Nursing Documentation ED NIHSS nursing documentation: reviewed/agree
[2025-06-19 17:15] VITALS: BP 120/78; PULSE 100; RESP 18; TEMP 36.6; O2SAT 100
[2025-06-19] MEDS: cefTRIAXone 500 MG, LIDOCAINE 1% LOCAL INJ 1 ML IM (17:41)
[2025-06-19 17:51] LABS: BEDSIDEPREGUCG Negative (Negative)
[2025-06-19 20:26] LABS: Trichomonas Vag PCR NOT DETECTED (NOT DETECTE)
== END 2025-06-19 18:02 | disposition home or self-care (01) ==
PROVIDERS: Emergency Provider Nurse Practitioner Family; PCP Obstetrics & Gynecology
DX: N89.8 Other specified noninflammatory disorders of vagina (principal); Z11.3 Encounter for screening for infections with a predominantly sexual mode of transmission; I10 Essential (primary) hypertension; E28.2 Polycystic ovarian syndrome; Z98.84 Bariatric surgery status
CPT/HCPCS: 81025; 87070; 87491; 87591; 87661; 87798; 96372; 99213; G0463; J0696; J2003

== ENCOUNTER 2025-09-27 15:59 | Emergency (ER) | payer OTHER, MEDICAID, SELFPAY ==
--- OUTSIDE RECORDS SUMMARY | 2025-09-27 16:02 | XMS_ITS | Clinical Summary ---
Author Organization [facility] Address [address] [place] [address] Care Team Providers Care Bow String Maker Name Role Phone Unavailable Primary Care Provider [...] years 2022 INFLUENZA VACCINE (#1) 2025 Insurance [facility] BLUE ACCESS CHOICE
--- OUTSIDE RECORDS SUMMARY | 2025-09-27 16:02 | XMS_ITS | Clinical Summary ---
Author Organization [facility] Address [address] [place] [address] Phone Care Team Providers Care Applications Engineer Name Role Phone Rosy Monroe MD Primary [...] Stroke like symptoms Medications ergocalciferol (VITAMIN D) 26042 UNIT CapsuleIndicati ons:Vitamin D deficiency Take 1 [...] Comments Blood Pressure 135/94 11/30/2022 8:39 AM MINI LAB OPERATOR Pulse 80 11/30/2022 8:39 AM MINI LAB OPERATOR Temperature 36.2 C (97.1 F) 11/30/2022 8:39 AM MINI LAB OPERATOR Respiratory Rate 20 11/30/2022 8:39 AM MINI LAB OPERATOR Oxygen Saturation 98% 11/30/2022 8:39 AM MINI LAB OPERATOR Inhaled Oxygen Concentration - - Weight 101.4 kg (223 lb 8 oz) 11/30/2022 8:39 AM MINI LAB OPERATOR Height 170.2 cm (5' 7) 11/30/2022 8:39 AM MINI LAB OPERATOR Body Mass Index 35.01 11/30/2022 8:39 AM MINI LAB OPERATOR Plan of Treatment Upcoming Encounters Date Type Department Care Team (Late st Contact Info) Description 12/02/2025 9:00 AM MINI LAB OPERATOR Office Visit [facility] - [facility]rology - [place] [address] [place] [address] Santiago Orosco MD [address] [place] [address] Health Maintenance Due Date Last Done Comments Mammogram 1977 Varicella Immunization (1 of 2 - 13+ 2-dose series) 1990 Discussion re Starting/Frequency of Mammograms 2017 Cologuard 2022 Immunochemical Fecal Occult Blood 2022 Influenza Immunization (#1) 2025 100 03/2018, 10/12/2016, 03/01/2015, Additional history exists SARS-COV-2 Immunization ( season) 2025 Td Immunization Every 10 Years (Adults With [...] HEPATITIS C ANTIBODY Routine 12/01/2021 5:04 PM MINI LAB OPERATOR Encounter for other plastic and reconstructive surgery following medical procedure or healed injury from Last 3 Months or Most Recently Relevant to Health Maintenance Results * HEPATITIS C ANTIBODY (12/01/2021 5:04 PM MINI LAB OPERATOR) hepatitis C antibody 0.12 <1 S/CO [facility] ARCH [id number] B 12/02/2021 3:11 PM MINI LAB OPERATOR [facility] Comment: Signal/Cutoff ratio < 0.79 is Nondetected Signal/Cutoff ratio 0.80-0.99 is Grayzone Signal/Cutoff ratio > 0.99 is Detected Supplemental assays are recommended if signal/cutoff ratio is >/=1.00. Signal/cutoff ratio result >/= 5.00 is 97% predictive of positivity for recombinant immunoblot assay (RIBA) and will be reported to the [place] [facility] Public [facility] as required. Blood Venipuncture / Unknown 12/01/2021 5:04 PM MINI LAB OPERATOR 12/01/2021 5:11 PM MINI LAB OPERATOR us Not On File Provider CHEMISTRY ORDERABLES Final Result [facility] [address] [place] [address], from Last 3 Months or Most Recently Relevant to Health Maintenance Insurance MEDICAID [place] AETNA [facility] AETNA INC CIGNA [facility] GENERIC Care Teams Applications Engineer Relationship Specialty Start Date End Date Rosy Monroe MD [address] [place] [address] PCP - General Family Medicine 04/18/25
--- OUTSIDE RECORDS SUMMARY | 2025-09-27 16:02 | XMS_ITS | Encounter Summary ---
Author Organization [facility] Address [address] [place] [address] Phone Care Team Providers Care Interlocker Maintainer Name Role Phone Nii Pina MD Primary Care Provider [phone] Rosy Monroe MD Primary Care Provi albina Encounter Details Date Type Department Care Team (Late st Contact Info) Description 06/06/2023 Telephone [facility] Oncology Services [address] [place] [address] Claire Reno, RN [place] Social [...] Notes * Telephone Encounter - Corrina Gonsalez - 06/06/2023 4:06 PM CDT The patient [...] st Contact Info) Description 12/02/2025 9:00 AM ART HISTORY PROFESSOR Office Visit [facility] - Neurology [facility] [address] [place] [address] Santiago Orosco MD [address] [place] [address] documented as of this encounter Visit Diagnoses Not on filedocumented in this encounter Additional Health Concerns Assessment Noted Time PHQ-9 Depression Total Score: 0 10/05/20 19 1:11 PM ART HISTORY PROFESSOR documented as of this encounter Care Teams Interlocker Maintainer Relationship Specialty Start Date End Date Nii Pina MD PCP - General Internal Medicine 07/02/20 04/17/25 Rosy Monroe MD [address] [place] [address] [place] [address] PCP - General Family Medicine 04/18/25 documented as of this encounter
--- OUTSIDE RECORDS SUMMARY | 2025-09-27 16:02 | XMS_ITS | Encounter Summary ---
Author Organization [facility] Address [address] [place] [address] Phone Care Team Providers Care Direct Mail Clerk Name Role Phone Nii Pina MD Primary Care Provider [phone] Octavio Rodriguez MD Unavailable Yobany Parsons MD Unavailable [phone] Shana Wyatt MD Unavailable No, Physician Unavailable Olive Shah PT Unavailable Unavailable Osvaldo Crenshaw NP Unavailable [phone] Rosy Monroe MD Primary Care Provi albina Arturo Smith MD Unavailable Encounter Details Date Type Department Care Team (Late st Contact Info) Description 11/09/2023 Documentation [facility] Medicine Orthopaedic Surgery [address] [facility] Advanced Medicine [address]th [place] [address] [place] [address] Han Allison MD [address] [facility] [address] [place] [address] Social History Tobacco Use Types Packs/Day Years [...] often do you attend chur ch or islam services? More than 4 times per year 03/30/2022 Do you belong to any clubs o r organizations such as jain groups, unions, fraternal or athletic groups, or [...] on file Legal Sex Female 10:56 AM PHOTOCOPIER TECHNICIAN Gender Identity Not on file Sexual Orientation Not on file documented as of this encounter Plan of Treatment Not on file documented as of this encounter Visit Diagnoses Not on filedocumented in this encounter Additional Health Concerns Infection Onset Date Last Indicated Resolved Time COVID: Suspected 12/14/2023 12/14/2023 12/14/2023 12:09 PM PHOTOCOPIER TECHNICIAN COVID: Suspected 12/14/2023 12/14/2023 12/14/2023 6:40 PM PHOTOCOPIER TECHNICIAN COVID: Suspected 02/08/2024 02/08/2024 02/08/2024 5:41 PM CDT documented as of this encounter Care Teams Direct Mail Clerk Relationship Specialty Start Date End Date Nii Pina MD PCP - General 07/09/20 04/14/25 Rosy Monroe MD [address] [place], [place] [id number] PCP - General Family Medicine 04/15/25 Octavio Rodriguez MD [address] [place] [address] [address] Consulting Physician Plastic Surgery 02/02/21 Yobany Parsons MD [address] [place] [address] [address] Consulting Physician Orthopedic Surgery 03/30/22 Shana Wyatt MD [address] [facility] [address] [facility] [address] [place] [address] Consulting Physician Allergy and Immunology 04/02/22 No, Physician 04/02/22 Olive Shah, PERICO Physical Therapist Physical Therapy 09/09/22 Osvaldo Crenshaw, MIGUELINA [address] [place] [address] [address] [place] [address] Nurse Practitioner Nurse Practitioner 04/07/23 Arturo Smith MD [address] [facility] [address] [address] DANIEL Jenkins [address] [address] Consulting Physician Neurology 08/06/25 documented as of this encounter
--- OUTSIDE RECORDS SUMMARY | 2025-09-27 16:02 | XMS_ITS | Clinical Summary ---
Author Organization [facility] Address [address] [place] [address] Care Team Providers Care Unit Manager Name Role Phone Octavio Rodriguez MD Unavailable [phone] Yobany Parsons MD Unavailable [phone] Shana Wyatt MD Unavailable [phone] No, Physician Unavailable Olive Shah PT Unavailable Unavailable Osvaldo Crenshaw NP Unavailable [phone] Rosy Monroe MD Primary Care Provi albina Arturo Smith MD Unavailable Allergies Active Allergy Reactions Criticality Noted Date [...] TABLET DAILY X 2 MONTHS 5 Active cyanocobalamin (Vitamin B-12) 1,000 mcg/mL injection INJECT 1 ML BY SUBCUTANEOUS ROUTE EVERY MONTH 5 Active ergocalciferol (VITAMIN D) 50,000 unit capsule Take 1 capsule (50,000 Units total) by mouth once a week 5 Active Hospital, Clinic, or Other Facility Administered Medication Ordered Dose Route Frequency Start Date End Date Status cyanocobalamin (Vitamin B-12) injection 1,000 mcgIndications:B12 deficiency 1000 mcg IM Once 09/05/2025 09/05/2025 Ended Active Problems Problem Noted Date Diagnosed Date [...] Encounters Date Type Department Care Team Description 09/13/2025 Orders Only [facility] [address] [place] [address] [address] [address] Evan Coreas NP 09/13/2025 Orders Only [facility] [address] [facility] [address] [place] [address] Evan Coreas NP Memory loss (Primary Dx) 09/13/2025 Telephone [facility] [address] [place] [phone] Arturo Smith MD 09/05/2025 3:00 PM CDT Office Visit [facility] [address] [place] [phone] Arturo Smith MD B12 deficiency (Primary Dx); Memory loss; Psychophysiological insomnia; Posttraumatic stress disorder 08/30/2025 3:30 PM CDT Office Visit [facility] 12th [place] [address] [place] [address] Han Allison MD Lumbar radiculopathy (Primary Dx); Spinal stenosis of lumbar region without neurogenic claudication 08/30/2025 3:15 PM CDT - 08/30/2025 11:59 PM CDT Hospital Encounter [facility] [address] [place] [address] Spinal stenosis of lumbar region without neurogenic claudication; Lumbar radiculopathy Discharge Disposition: Discharge to home or self care 08/22/2025 9:00 AM CDT Clinical Support [facility] [address] [place] [address] Jessica Farley, PhD Memory loss 07/03/2025 Telephone [facility] [place] [address] [place] [phone] Rosy Monroe MD Appointment from Last 3 Months Immunizations Immunization Administration [...] 03/30/2022 How often do you attend chur or zoroastrian services? 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 Gender Identity Not on file Sexual Orientation Not on file Obstetrics History Para Term AB IAB SAB Ectopic Multiple Livin g Live Births 4 3 3 Date Outcome GA Total Labor Labor/2nd/3rd Weight Sex Type Anes PTL Kaylin A1 A5 Name Clin Term Term Term Last Filed Vital Signs Vital Sign Reading Time Taken Comments Blood Pressure 139/86 09/05/2025 2:46 PM CDT Pulse 77 09/05/2025 2:46 PM CDT Temperature 36.3 C (97.3 F) 10/16/2024 3:19 PM SALES REPRESENTATIVE [employer]ATHER [employer] Respiratory Rate 18 10/16/2024 7:34 PM SALES REPRESENTATIVE [employer]ATH[employer] Oxygen Saturation 98% 09/05/2025 2:46 PM CDT Inhaled Oxygen Concentration - - Weight 77.1 kg (170 lb) 09/05/2025 2:46 PM CDT Height 175.3 cm (5' 9) 09/05/2025 2:46 PM CDT Body Mass Index 25.1 09/05/2025 2:46 PM CDT Plan of Treatment Health Maintenance Due [...] this topic Medical Devices Implanted Type Area Care Aide Device Identifier Shelf Expiration Date Model / Serial / Lot Cage In Back From Prior Surgery N/A: Back [employer] Ar-8978-Cp Internalbrace Kit Hand Wrist Set Implant Ligament Augmentation - [id number] Implanted:Qty: 1 on 08/13/2021 by Octavio Rodriguez MD at [facility] Right: Thumb [employer] [id number] 02/04/2026 AR-8978-CP / / [id number] Allosource Allofuse Plus Putty Graft 5ml Bone Demineralized Bone Matrix [id number] - [id number] Implanted:Qty: 1 on 08/12/2022 by Yobany Parsons MD at [facility] Spine Lumbar Allosource 10/29/2022 [id number] / / [id number] Orthofix Spinal Implants Screw Bone 6.5mm 35mm Janus Spine Cortex Cannltd St Self 36-3358 - [id number] Implanted:Qty: 1 on 08/12/2022 by Yobany Parsons MD at [facility] Spine Lumbar Orthofix Spinal Implants [id number] / / Orthofix Spinal Implants Janus 6.5mm 40mm Cannulated Self Tap Self Drill Modular Spine 36-9260 - [id number] Implanted:Qty: 1 on 08/12/2022 by Yobany Parsons MD at [facility] Spine Lumbar Orthofix Spinal Implants [id number] / / Orthofix Spinal Implants Firebird 5.5mm 40mm Hexagon Taper End Prebent Red Spinal [id number] - [id number] Implanted:Qty: 1 on 08/12/2022 by Yobany Parsons MD at [facility] Spine Lumbar Orthofix Spinal Implants / / Orthofix Spinal Implants Firebird Modular Lock Spine Screw Set Fixation System [id number] Implanted:Qty: 2 on 08/12/2022 by Yobany Parsons MD at [facility] Spine Lumbar Orthofix Spinal Implants / / Orthofix Spinal Implants Clayhole L120 Mm Open Body Spine; Thoracolumbar Tall Screw Bone [id number] Implanted:Qty: 2 on 08/12/2022 by Yobany Parsons MD at [facility] Spine Lumbar Orthofix Spinal Implants / / Procedures Procedure Name Priority Date/Time Associated Diagnosis Comments XR LUMBAR SPINE AP LAT FLEX EX Schedule Routine, Read Routine (OP Routine) 08/30/2025 3:33 PM CDT Spinal stenosis of lumbar region without neurogenic claudication Lumbar radiculopathy HEPATITIS C ANTIBODY Routine 09/21/2023 3:46 PM SALES REPRESENTATIVE [employer] SCREENING MAMMOGRAM BILATERAL W MAMADOU W IMPLANTS Schedule Routine, Read Routine (OP Routine) 06/29/2022 2:28 PM CDT Screening mammogram, encounter for from Last 3 Months or Most Recently Relevant to Health Maintenance Results * XR Spine Lumbar Ap Lat Flex Ext min 4 Views (08/30/2025 3:33 PM CDT) Anatomical Region Laterality Modality L-spine N/A Computed Radiogr aphy 08/30/2025 3:40 PM CDT Impressions 08/30/2025 3:40 PM CDT 1. 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 FINDINGS: Comparison to 10/14/2023. Unchanged left posterior and cemented fusion at L5-S1 with combined anterior discectomy and instrumented fusion. Hardware is intact. Multilevel degenerative disc disease greatest and moderate at L4-L5. Vertebral body heights preserved. Sagittal alignment normal in neutral position. No abnormal motion with bending. Procedure Note Jeevan Avendano MD - 08/30/2025 EXAMINATION: XR SPINE LUMBAR AP LAT FLEX EXT MIN 4 VIEWS HISTORY: Back pain. FINDINGS: Comparison to 10/14/2023. Unchanged left posterior and cemented fusion at L5-S1 with combined anterior discectomy and instrumented fusion. Hardware is intact. Multilevel degenerative disc disease greatest and moderate at L4-L5. Vertebral body heights preserved. Sagittal alignment normal in neutral position. No abnormal motion with bending. IMPRESSION: 1. 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 Does NOT exclude the possibility of recent exposure to HCV. Current interpretive data was last revised on 22 Blood 09/21/2023 3:46 PM SALES REPRESENTATIVE [employer] 09/21/2023 6:47 PM SALES REPRESENTATIVE [employer] Abdi Ramirez MD LAB MICROBIOLOGY - GENERAL O RDERABLES Final Result Performing Organization Address City/State/[facility] Co de Phone Number [facility] One [facility] Department [place] [address] * Screening Mammogram Bilateral W Mamadou W [...] Relevant to Health Maintenance Insurance IDPA [facility]NA [facility]POS [place]PA A[place]NA [place] HMO/POS CIGNA [facility] EM[employer]EE [employer] PLANS Address: [id number] [place] [address] IDRI AETNA [place] HMO/POS CIGNA [facility] [employer] Address: [address] [place] [address] AETNA [facility] Advance Directives For more information, please contact: [phone] * Full Code (Latest Code Status on File) Date Activated Date Inactivated Comments 08/12/2022 2:11 PM 08/13/2022 6:31 PM * Full Code Date Activated Date Inactivated Comments 03/29/2022 4:15 PM 04/02/2022 7:43 PM * Full Code Date Activated Date Inactivated Comments 12/08/2017 8:37 PM 12/12/2017 7:27 PM * Full Code Date Activated Date Inactivated Comments 12/08/2017 3:24 PM 12/08/2017 8:37 PM Care Teams Unit Manager Relationship Specialty Start Date End Date Rosy Monroe MD [address] [place] [address] PCP - General Family Medicine 04/15/25 Octavio Rodriguez MD [address] [facility] [address] [place] [address] Consulting Physician Plastic Surgery 02/02/21 Yobany Parsons MD [address] [facility] [address] [place] [address] Consulting Physician Orthopedic Surgery 03/30/22 Shana Wyatt MD [address] [facility] [address] [facility] [address] [place] [address] Consulting Physician Allergy and Immunology 04/02/22 No, Physician 04/02/22 Olive Shah, PT Physical Therapist Physical Therapy 09/09/22 Osvaldo Crenshaw, MIGUELINA [address] [facility] [address] [facility] [address] [place] [address] Nurse Practitioner Nurse Practitioner 04/07/23 Arturo Smith MD [address] [facility] Jenkins [address] [place] [address] Consulting Physician Neurology 08/06/25
--- OUTSIDE RECORDS SUMMARY | 2025-09-27 16:02 | XMS_ITS | Encounter Summary ---
Author Organization [facility] Address [address] [place] [address] Care Team Providers Care Scheduling Specialist Name Role Phone Octavio Rodriguez MD Unavailable [phone] Yobany Parsons MD Unavailable [phone] Shana Wyatt MD Unavailable [phone] No, Physician Unavailable Olive Shah PT Unavailable Unavailable Osavldo Crenshaw NP Unavailable [phone] Rosy Monroe MD Primary Care Provi albina Arturo Smith MD Unavailable Encounter Details Date Type Department Care Team (Late st Contact Info) Description 09/13/2025 Telephone [facility] [address] [facility] [address] [place] [address] Arturo Smith MD [address] [place] [address] [address] [place] [address] Social History Tobacco Use Types Packs/Day Years [...] How often do you attend chur or yazidism services? 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 STANT BRANCH OPERATIONS MANAGER * Telephone Encounter - Genet Redd - 09/13/2025 9:16 AM CST [place] Smith had ordered speech therapy for patient. After seeing him last week she tried calling [facility] to schedule the therapy but they told her we would have to send a new order. Will you place anew order for speech therapy for patient at [facility]? STANT BRANCH OPERATIONS MANAGER documented in this encounter Plan of Treatment Not on file documented as of this encounter Visit Diagnoses Not on filedocumented in this encounter Care Teams Scheduling Specialist Relationship Specialty Start Date End Date Rosy Monroe MD [address] [facility] [address] [place] [address] PCP - General Family Medicine 04/15/25 Octavio Rodriguez MD [address] [place] [address] Consulting Physician Plastic Surgery 02/02/21 Yobany Parsons MD [address] [place] [address] Consulting Physician Orthopedic Surgery 03/30/22 Shana Wyatt MD [address] [facility] [address] [place] [address] Consulting Physician Allergy and Immunology 04/02/22 No, Physician 04/02/22 Olive Shah, PERICO Physical Therapist Physical Therapy 09/09/22 Osvaldo Crenshaw NP [address] [facility] [address] [place] [address] Nurse Practitioner Nurse Practitioner 04/07/23 Arturo Smith MD [address] [facility] [place] [address] Consulting Physician Neurology 08/06/25 documented as of this encounter
[2025-09-27 16:08] VITALS: BP 141/86; PULSE 72; RESP 18; TEMP 36.6; O2SAT 100
--- NOTE | 2025-09-27 16:34 | ED_ITS ---
HPI - Skin/Abscess/Foreign Bdy General Chief complaint: Skin/Abscess/Foreign Body Stated complaint: allergic reaction/poss drywall Time Seen by Provider: 09/27/25 16:34 Source: patient and RN notes reviewed Mode of arrival: ambulatory Limitations: no limitations History of Present Illness HPI narrative: 50-year-old female presents with concern for rash. Reports 2 days ago she was changing a fire alarm when dust fell from the ceiling on to her chest. She reports she had a rash the next day in her chest, reports the rash has been spreading to her abdomen back and pelvis. She has been taking Benadryl and usin g Benadryl cream without relief. She is concern for some exposure to dust mites. MD complaint: rash Related Data Allergies Allergy/AdvReac Type Severity Reaction Status Date / Time Sulfa (Sulfonamide Allergy Severe Hives Verified 09/27/25 16:23 Antibiotics) hydrocodone Allergy Mild Itching Verified 09/27/25 16:23 diazepam Allergy Unknown Hallucinati Verified 09/27/25 16:23 ng hydromorphone (From Dilaudid) Allergy Anaphylaxis Verified 09/27/25 16:23 levofloxacin AdvReac Severe Stroke Verified 09/27/25 16:23 like symptoms RASH metronidazole (From Flagyl) AdvReac Nausea and Verified 09/27/25 16:23 Vomiting Review of Systems Review of Systems: CONSTITUTIONAL: Denies malaise, chills, sweats, or fever. EYES: Denies redness, or discharge. ENT: Denies rhinorrhea, congestion, swollen lips, swollen tongue CARDIOVASCULAR: Denies chest pain, palpitations, or edema. RESPIRATORY: Denies cough or dyspnea. GASTROINTESTINAL: Denies abdominal pain, nausea, vomiting SKIN: Reports itchy rash MUSCULOSKELETAL: Denies joint pain or myalgia. NEUROLOGIC: Denies headache. All systems reviewed & are unremarkable except as noted in HPI and below PMFSH Past Medical History Medical History Anxiety Elective x1 HSV (herpes simplex virus) infection Type 1 and Type 2 Hypertension Missed x1 2009 PCOS (polycystic ovarian syndrome) Surgical History Surgical History Gastric bypass status for obesity 2011 H/O section X3 12/06/91, c/s, F, 6#7, Toxemia 09/21/06, c/s, M, 7# 11/21/09, c/s, M, 7# History of abdominoplasty History of appendectomy History of cholecystectomy 2012 History of left salpingo-oophorectomy History of repair of hiatal hernia Family History Family History Father Alive and well Mother Schizophrenia Social History Social History Smoking status: Never smoker Second hand tobacco smoke exposure: No Alcohol intake: never Substance use: never Living arrangements: with family Occupation/Education: occupation Gender identity (if verbalized by the patient): Female Sexual Orientation (if Verbalized by the Patient): Straight or Heterosexual Spiritual care concerns: No Comments At time of signature, agree with nursing past medical, surgical, social and family history. There is no relevant family history pertinent to the presenting complaint Exam Narrative: GENERAL: Well-appearing, well-nourished, and in no acute distress. HEAD: Normocephalic, atraumatic. EYES: PERRLA, conjunctivae clear, and EOMI. ENT: Mucous membranes moist. Oropharynx without edema, erythema or lesions. NECK: Supple. No lymphadenopathy CHEST: Clear to auscultation. No respiratory distress. HEART: Regular rate and rhythm. SKIN: Warm, dry. Erythematous irregular Papules, some discrete, some linear, some confluent noted to the chest, breasts, torso, upper arms NEURO: Alert and oriented x3. PSYCH: Normal mood and affect Course Course Emergency Course: Patient is aware of diagnosis, understands and agrees to treatment plan. Anticipatory guidance given. Patient agrees to follow-up as directed and is aware of reasons to seek care at the emergency department. Portions of this record may have been created with voice recognition software Level of Care: Express Care Visit Vital Signs Vital signs: Vital Signs Temperature 98 F 09/27/25 16:08 Pulse Rate 72 09/27/25 16:08 Respiratory Rate 18 09/27/25 16:08 Blood Pressure 141/86 H 09/27/25 16:08 Pulse Oximetry 100 09/27/25 16:08 Oxygen Delivery Room Air 09/27/25 16:08 Temperature 98 F 09/27/25 16:08 Pulse Rate 72 09/27/25 16:08 Respiratory Rate 18 09/27/25 16:08 Blood Pressure 141/86 H 09/27/25 16:08 Pulse Oximetry 100 09/27/25 16:08 Oxygen Delivery Room Air 09/27/25 16:08 Reviewed. MDM - Skin/Abscess/Foreign Bdy MDM Narrative Medical decision making narrative: Does not appear at this time to be erythema multiforme, bullous, SJS, TEN; no evidence at this time to suggest RMSF, endocarditis or Lyme disease; patient looks well, nontoxic and is tolerating oral intake; no neurologic signs or symptoms; no headache, photophobia or neck pain; afebrile; appropriate for initial outpatient treatment; discussed the importance of follow-up, patient agrees; question, viral exanthema, contact dermatitis, allergic dermatitis, eczema, urticaria. No soft palate or uvula edema, no tongue, lip edema or other mucosal involvement, no respiratory compromise, no stridor, no wheezing, no wheezing, no history of syncope, no hypotension, no nausea, vomiting, or diarrhea. Instructed patient to go to nearest ER immediately for any worsening symptoms including but not limited to: fever, spreading rash, pain, sore throat, headache, dizziness, chest pain, trouble breathing, or any symptoms concerning to the patient. Critical Care Time Critical Care Time Critical Care Time: No Discharge Plan Discharge Clinical Impression: Acute eruption of skin Patient Disposition: Home Condition: Stable Instructions: Acute Rash (ED) Additional Instructions: Wash the area with gentle soap and water only. Take medication as prescribed Avoid scratching when possible to prevent worsening of the condition and disruption of the skin that could lead to bacterial infection To relieve itching, place a cool washcloth or some ice over the area that itches, rather than scratching Follow up with primary care provider or seek ER if you have trouble breathing, become hoarse, or start wheezing, develop belly cramps, vomiting or feel dizzy. Patient Language: Amharic Prescriptions: New prednisone 20 mg tablet 40 mg PO DAILY 5 Days Qty: 10 0RF permethrin [Elimite] 5 % cream 1 applic topical ONCE Qty: 60 0RF Rx Instructions: leave on for 8 to14 hrs before washing off Follow-up/Referrals: PHYSICIAN NOT ON STAFF,NONSTAFF [Primary Care Provider] Time of Disposition: 16:43
== END 2025-09-27 16:46 | disposition home or self-care (01) ==
PROVIDERS: Emergency Provider Nurse Practitioner
DX: R21 Rash and other nonspecific skin eruption (principal); I10 Essential (primary) hypertension; E28.2 Polycystic ovarian syndrome; E66.9 Obesity, unspecified; Z68.25 Body mass index [BMI] 25.0-25.9, adult; Z98.84 Bariatric surgery status
CPT/HCPCS: 99213; G0463

== ENCOUNTER 2025-10-02 16:56 | Emergency (ER) | payer OTHER, MEDICAID, SELFPAY ==
--- OUTSIDE RECORDS SUMMARY | 2025-10-02 16:58 | XMS_ITS | Encounter Summary ---
Author Organization [facility] Address [address] [place] [address] Care Team Providers Care Microfabrication Engineer Manager Name Role Phone Unknown, Provider Primary Care Provider Unavaila Nii Caldera MD Primary Care Provider [phone] Pcp, None Primary Care Provider Unavailabl e None, Physician Primary Care Provider Unavailabl e Nii Pina MD Primary Care Provider [phone] Encounter Details Date Type Department Care Team (Late st Contact Info) Description 05/26/2020 [facility] Outpatient Visit [facility] [address] [place] [address] Elias Cao MD [address] [facility] [place] [address] Social History Tobacco Use Types Packs/Day Years Used Date Smoking Tobacco: Never Smokeless Tobacco: Never Alcohol Use Standard Drinks/Week Comments No 0 (1 standard drink = 0.6 oz pur e alcohol) Comments No Sex and Gender Information Value Date Recorded Sex Assigned at Not on file Legal Sex Female 12:58 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 Answer Entry Date Author No 06/20/2019 4:25 PM José Miguel Barney RN documented in this encounter Plan of Treatment Upcoming Encounters Date Type Department Care Team (Late st Contact Info) Description 11/14/2025 9:00 AM INSIDE BARREL LATHE OPERATOR Office Visit [facility] - [address] [facility] [place] [id number] documented as of this encounter Goals Goal Patient Goal Type Associated Problems Recent Progress Patient-Stated? Author Mobility General No Elena Manning RN Note: Expected end date: 03/27/2020 The goal is to maintain or improve your mobility at the optimum level for you. Interventions: documented as of this encounter Visit Diagnoses Not on filedocumented in this encounter Care Teams Microfabrication Engineer Manager Relationship Specialty Start Date End Date Unknown, Provider PCP - General 07/15/20 07/16/20 Nii Pina MD [address] [place] [phone] PCP - General Internal Medicine 07/17/20 12/26/24 Pcp, None [address] [place] [address] PCP - General 12/27/24 01/15/25 None, Physician PCP - General 01/16/25 04/15/25 Nii Pina MD [address] [place] [phone] PCP - General Internal Medicine 04/16/25 documented as of this encounter
--- OUTSIDE RECORDS SUMMARY | 2025-10-02 16:58 | XMS_ITS | Encounter Summary ---
Author Organization [facility] Address [address] [place] [address] Phone Care Team Providers Care Cam Specialist Name Role Phone Nii Pina MD Primary Care Provider [phone] Rosy Monroe MD Primary Care Provi albina Encounter Details Date Type Department Care Team (Late st Contact Info) Description 06/06/2023 Telephone [facility] [address] [place] [address] Claire Reno, RN [place] Social [...] st Contact Info) Description 12/02/2025 9:00 AM APPLICATION PROCESSOR Office Visit [facility] - Neurology [facility] [address] [place] [address] Santiago Orosco MD [address] [place] [address] documented as of this encounter Visit Diagnoses Not on filedocumented in this encounter Additional Health Concerns Assessment Noted Time PHQ-9 Depression Total Score: 0 10/05/20 19 1:11 PM APPLICATION PROCESSOR documented as of this encounter Care Teams Cam Specialist Relationship Specialty Start Date End Date Nii Pina MD PCP - General Internal Medicine 07/02/20 04/17/25 Rosy Monroe MD [address] [place] [address] [place] [address] PCP - General Family Medicine 04/18/25 documented as of this encounter
--- OUTSIDE RECORDS SUMMARY | 2025-10-02 16:58 | XMS_ITS | Clinical Summary ---
Author Organization [facility] Address [address] [place] [address] Care Team Providers Care Senior Lead Software Engineer Name Role Phone Unavailable Primary Care Provider [...] years 2022 INFLUENZA VACCINE (#1) 2025 Insurance [facility] BLUE ACCESS CHOICE
--- OUTSIDE RECORDS SUMMARY | 2025-10-02 16:58 | XMS_ITS | Clinical Summary ---
Author Organization [facility] Address [address] [place] [address] Phone Care Team Providers Care Casing Finisher And Stuffer Name Role Phone Rosy Monroe MD Primary [...] Stroke like symptoms Medications ergocalciferol (VITAMIN D) 78082 UNIT CapsuleIndicati ons:Vitamin D deficiency Take 1 [...] Comments Blood Pressure 135/94 11/30/2022 8:39 AM RELAY CHECKER Pulse 80 11/30/2022 8:39 AM RELAY CHECKER Temperature 36.2 C (97.1 F) 11/30/2022 8:39 AM RELAY CHECKER Respiratory Rate 20 11/30/2022 8:39 AM RELAY CHECKER Oxygen Saturation 98% 11/30/2022 8:39 AM RELAY CHECKER Inhaled Oxygen Concentration - - Weight 101.4 kg (223 lb 8 oz) 11/30/2022 8:39 AM RELAY CHECKER Height 170.2 cm (5' 7) 11/30/2022 8:39 AM RELAY CHECKER Body Mass Index 35.01 11/30/2022 8:39 AM RELAY CHECKER Plan of Treatment Upcoming Encounters Date Type Department Care Team (Late st Contact Info) Description 12/02/2025 9:00 AM RELAY CHECKER Office Visit [facility] - Neurology [facility] [address] [place] [address] Santiago Orosco MD [address] [place] [address] Health Maintenance Due Date Last Done Comments Mammogram 1977 Discussion re Starting/Frequency of Mammograms 2017 Cologuard 2022 Immunochemical Fecal Occult Blood 2022 Influenza Immunization (#1) 2025 1003/2018, 10/12/2016, 03/01/2015, Additional history exists SARS-COV-2 Immunization ( - season) 2025 Td Immunization Every 10 Years [...] HEPATITIS C ANTIBODY Routine 12/01/2021 5:04 PM RELAY CHECKER Encounter for other plastic and reconstructive surgery following medical procedure or healed injury from Last 3 Months or Most Recently Relevant to Health Maintenance Results * HEPATITIS C ANTIBODY (12/01/2021 5:04 PM RELAY CHECKER) hepatitis C antibody 0.12 <1 S/CO [facility] ARCH [id number] B 12/02/2021 3:11 PM RELAY CHECKER [facility] Comment: Signal/Cutoff ratio < 0.79 is Nondetected Signal/Cutoff ratio 0.80-0.99 is Grayzone Signal/Cutoff ratio > 0.99 is Detected Supplemental assays are recommended if signal/cutoff ratio is >/=1.00. Signal/cutoff ratio result >/= 5.00 is 97% predictive of positivity for recombinant immunoblot assay (RIBA) and will be reported to the [place] [facility] as required. Blood Venipuncture / Unknown 12/01/2021 5:04 PM RELAY CHECKER 12/01/2021 5:11 PM RELAY CHECKER us Not On File Provider CHEMISTRY ORDERABLES Final Result [facility] [address] [place] [address], from Last 3 Months or Most Recently Relevant to Health Maintenance Insurance MEDICAID [place] AETNA [facility] AETNA INC CIGNA [facility] GENERIC Care Teams Casing Finisher And Stuffer Relationship Specialty Start Date End Date Rosy Monroe MD [address] [place] [address] [place] [address] PCP - General Family Medicine 04/18/25
--- OUTSIDE RECORDS SUMMARY | 2025-10-02 16:58 | XMS_ITS | Encounter Summary ---
Author Organization [facility] Address [address] [place] [address] Phone Care Team Providers Care Gas Maker Helper Name Role Phone Nii Pina MD Primary Care Provider Octavio Rodriguez MD Unavailable Yobany Parsons MD Unavailable [phone] Shana Wyatt MD Unavailable No, Physician Unavailable Olive Shah PT Unavailable Unavailable Osvaldo Crenshaw NP Unavailable [phone] Rosy Monroe MD Primary Care Provi albina Arturo Smith MD Unavailable Encounter Details Date Type Department Care Team (Late st Contact Info) Description 11/09/2023 Documentation [facility] Medicine Orthopaedic Surgery [address] [facility] [address] [place] [address] [place] [address] Han Allison MD [address] [facility] [address] [place] [address] Social History Tobacco Use Types Packs/Day Years [...] often do you attend chur ch or gnosticism services? More than 4 times per year 03/30/2022 Do you belong to any clubs o r organizations such as tenriism groups, unions, fraternal or athletic groups, or [...] on file Legal Sex Female 10:56 AM SENIOR INVESTIGATOR Gender Identity Not on file Sexual Orientation Not on file documented as of this encounter Plan of Treatment Not on file documented as of this encounter Visit Diagnoses Not on filedocumented in this encounter Additional Health Concerns Infection Onset Date Last Indicated Resolved Time COVID: Suspected 12/14/2023 12/14/2023 12/14/2023 12:09 PM SENIOR INVESTIGATOR COVID: Suspected 12/14/2023 12/14/2023 12/14/2023 6:40 PM SENIOR INVESTIGATOR COVID: Suspected 02/08/2024 02/08/2024 02/08/2024 5:41 PM CDT documented as of this encounter Care Teams Gas Maker Helper Relationship Specialty Start Date End Date Nii Pina MD PCP - General 07/09/20 04/14/25 Rosy Monroe MD [address] [place], [place] [phone] PCP - General Family Medicine 04/15/25 Octavio Rodriguez MD [address] [place] [address] [address] Consulting Physician Plastic Surgery 02/02/21 Yobany Parsons MD [address] [place] [address] [address] Consulting Physician Orthopedic Surgery 03/30/22 Shana Wyatt MD [address] [facility] [address] [facility] [address] [place] [address] Consulting Physician Allergy and Immunology 04/02/22 No, Physician 04/02/22 Olive Shah, PERICO Physical Therapist Physical Therapy 09/09/22 Osvaldo Crenshaw, MIGUELINA [address] [place] [address] [address] [place] [address] Nurse Practitioner Nurse Practitioner 04/07/23 Arturo Smith MD [address] [facility] [address] DANIEL Jenkins [address] [address] Consulting Physician Neurology 08/06/25 documented as of this encounter
--- OUTSIDE RECORDS SUMMARY | 2025-10-02 16:59 | XMS_ITS | Clinical Summary ---
Author Organization [facility] Address [address] [place] [address] Care Team Providers Care Bolt Header Name Role Phone Nii Pina MD Primary Care Provider [phone] Source Comments [facility],non-owned Affiliates and Associated Physician Practices is amultiple site organization consisting of ambulatory clinics and hospital sitesin [place], [place], [place] and [place]. This disclosure is being madepursuant to the Care Everywhere program and may not contain all information available regarding this patient. Last updated 18.[facility] Allergies Active Allergy Reactions Criticality Noted Date [...] document. Alwaysverify current medications with the patient. UFBGY-AQEYZZI-E INERALS (RESOURCE OPTISOURCE MUTLIPLE VITAMIN WITH MINERALS) CHEWIndications :Hyperparathyro idism (HCC) Take 1 tablet by mouth once daily 7 Active Additional Information Patient not taking.Reported on 08/01/2025 magnesium hydroxide (Milk Of Magnesia) 400 MG/5ML suspension Take 15 mL by mouth as needed for Constipation 4 Active Additional Information Patient not taking.Reported on 08/01/2025 omeprazole (PriLOSEC) 20 MG capsule TAKE 1 CAPSULE BY MOUTH EVERY DAY BEFORE BREAKFAST 90 capsule 1 5 Active Additional Information Patient not taking.Reported on 08/01/2025 Melatonin 10 MG Take 10 (ten) mg by mouth nightly as needed (insomnia) Active docusate sodium (Colace) 100 MG capsule Take 1 (one) capsule by mouth 2 times daily as needed for Constipation (relief of difficult bowel movements) 5 Active Additional Information Patient not taking.Reported on 08/01/2025 magnesium hydroxide (Milk Of Magnesia) 400 MG/5ML suspension Take 15 mL by mouth as needed for Constipation 5 Active Additional Information Patient not taking.Reported on 08/01/2025 ondansetron, disintegrating, (Zofran ODT) 4 MG tablet Take 1 (one) tablet by mouth every 6 hours as needed for Nausea/Vomiting Allow tablet to dissolve on the tongue 20 tablet 01/18/2025 6:09 PM CDT 5 Active Additional Information Patient not taking.Reported on 08/01/2025 amitriptyline (Elavil) 25 MG tablet Take 1 (one) tablet by mouth every evening 90 tablet 4 02/12/2025 12:25 PM CDT 5 Active Additional Information Patient not taking.Reported on 08/01/2025 oxyCODONE (Roxicodone) 5 MG/5ML oral solutionIndicat ions:Intestinal obstruction, unspecified cause, unspecified whether partial or complete (HCC) Take 5 mL by mouth every 4 hours as needed 120 mL 02/12/2025 12:25 PM CDT 5 Active Additional Information Patient not taking.Reported on 08/01/2025 methocarbamol (Robaxin) 750 MG tablet Take 1 (one) tablet by mouth every 8 hours as needed for Muscle Spasms 30 tablet 2 02/12/2025 12:25 PM CDT 5 Active Additional Information Patient not taking.Reported on 08/01/2025 prucalopride (Motegrity) 2 MG tablet Take 1 (one) tablet by mouth once daily 90 tablet 2 5 Active Active Problems Problem Noted Date Diagnosed [...] (12/27/2024): Herpes simplex infection;Recorded Elsewhere: No Location: [facility] Source: EHR Chronic: N Practice ID: [id number] Billable Time: 05:30:00 PM Increased frequency of urination 01/03/2019 Overview (12/27/2024): Urinary frequency;Recorded Elsewhere: No Location: [facility] Source: EHR Chronic: N Practice ID: [id number] Billable Time: 04:00:00 PM Hypertension 12/07/2018 Iron deficiency 05/07/2018 Vitamin B12 deficiency 05/07/2018 Pelvic and perineal pain 05/30/2017 Overview (12/27/2024): Pelvic and perineal pain;Recorded Elsewhere: No Location: [facility] Source: EHR Chronic: N Practice ID: [id number] Billable Time: 05:00:00 PM Hunger 04/22/2017 Chronic bilateral low back pain without sciatica 10/28/2016 Flexural atopic dermatitis 10/28/2016 S/P gastric bypass 10/28/2016 Microscopic hematuria 09/12/2016 Overview (12/27/2024): Other microscopic hematuria;Recorded Elsewhere: No Location: [facility] Source: EHR Chronic: N Practice ID: [id number] Billable Time: 11:30:00 AM Epigastric abdominal pain 07/23/2016 Irritable bowel syndrome without diarrhea 2015 Iron deficiency anemia 12/13/2014 Leukocytosis 06/12/2014 Overview (12/27/2024): LEUKOCYTOSIS NOS;Recorded Elsewhere: No Location: [facility] Source: EHR Chronic: N Practice ID: [id number] Billable Time: 01:30:00 PM Leukorrhea 06/12/2014 Overview (12/27/2024): Leukorrhea, not specified as infective;Recorded Elsewhere: No Location: [facility] Source: EHR Chronic: N Practice ID: [id number] Billable Time: 01:30:00 PM Dyspareunia in female 01/23/2014 Overview (12/27/2024): Dyspareunia;Recorded Elsewhere: No Location: [facility] Source: EHR Chronic: N Practice ID: [id number] Billable Time: 08:30:00 AM Carpal tunnel syndrome 05/01/2012 Morbid obesity Arthropathies Bilateral sacroiliitis Resolved Problems Problem Noted Date Diagnosed Date Resolved Date UTI (urinary tract infection) 09/04/2018 06/09/2020 Encounters Date Type Department Care Team Description 08/01/2025 9:00 AM CDT Office Visit [facility] - GI [address] [facility] [place] [phone] Osvaldo Campos MD Constipation, unspecified constipation type (Primary Dx); Colitis 08/01/2025 Travel 07/29/2025 Telephone [facility] [address] [place] [address] Tamiko, Miguel R, RN Scheduling Outreach (Anorectal manometry scheduling attempt x3) 07/23/2025 Telephone [facility] [address] [place] [address] Miguel Morrison RN Scheduling Outreach (Anorectal Manometry scheduling attempt x2) 07/19/2025 Telephone [facility] [address] [place] [address] Miguel Morrison RN Returned Call (Anorectal manometry appt) 07/18/2025 Telephone [facility] [address] [place] [address] Miguel Morrison RN Scheduling Outreach (Anorectal manometry scheduling attempt x1) 07/18/2025 Results Follow-Up [facility] - General Surgery [address] [facility] [place] [address] Virginia Love MD 07/15/2025 4:05 PM CDT - 07/15/2025 11:59 PM CDT Hospital Encounter [facility] [address] [place] [address] Virginia Love MD Discharge Disposition: Home or Self Care from Last 3 Months Immunizations Immunization Administration [...] and heating? Not hard at all 10/19/2024 [facility] - Occupational Stress [...] any time in the past 12 m [facility], were you homeless or living in a fpc (including now)? No 10/19/2024 Comments No Sex and Gender Information Value Date Recorded Sex Assigned at Not on file Legal Sex Female 12:58 PM UTILITY PIPE LAYER Gender Identity Not on file Sexual Orientation Not on file Last Filed Vital Signs Vital Sign Reading Time Taken Comments Blood Pressure 124/87 08/01/2025 8:54 AM CDT Pulse 66 08/01/2025 8:54 AM CDT Temperature 36.1 C (97 F) 08/01/2025 8:54 AM CDT Respiratory Rate 20 08/01/2025 8:54 AM CDT Oxygen Saturation 100% 08/01/2025 8:54 AM CDT Inhaled Oxygen Concentration - - Weight 78.5 kg (173 lb) 08/01/2025 8:54 AM CDT Height 170.2 cm (5' 7) 08/01/2025 8:54 AM CDT Body Mass Index 27.1 08/01/2025 8:54 AM CDT Plan of Treatment Upcoming Encounters Date Type Department Care Team (Late st Contact Info) Description 11/14/2025 9:00 AM UTILITY PIPE LAYER Office Visit [facility] - GI [facility] [place] [address] Health Maintenance Due Date Last Done Comments COLOGUARD (AGES 45-75) - COLON CA SCREENING 1977 CT COLONOGRAPHY - COLON CA SCREENING 1977 FIT - COLON CA SCREENING 1977 FLEX SIG - COLON CA SCREENING 1977 LIPID TESTING 1977 HEPATITIS C SCREENING 08/15/1995 DTAP/TDAP/TD VACCINES (1 - Tdap) 1996 HEPATITIS B VACCINE (1 of 3 - 19+ 3-dose series) 1996 PAP with HPV 2007 MAMMOGRAM 06/29/2024 06/29/2022, 0801/2022, 08/06/2020, Additional history exists DEPRESSION SCREENING 11/07/2024 COVID-19 VACCINE ( - season) 2025 INFLUENZA VACCINE (#1) 2025 8, 10/12/2016, 03/01/2015, Additional history exists ZOSTER VACCINE (1 of 2) 2027 Cervical Cancer Screening 10/10/2027 PAP SMEAR 10/10/2027 10/10/2024, 02/2024, 02/06/2014 SCREENING FOR DIABETES 01/18/2028 , 01/16/2025, 01/16/2025, Additional history exists COLON MONITORING 06/25/2029 06/25/2019, 06/25/2019 COLONOSCOPY - COLON CA SCREENING 06/25/2029 06/25/2019, 06/25/2019 Colorectal Cancer Screening 06/25/2029 HIV SCREENING Completed 10/10/2024, 07/15/2020 HIB VACCINE [...] Patient-Stated? Author Mobility General No Elena Manning, SUSANNE Note: Expected end date: 03/27/2020 The goal is to maintain or improve your mobility at the optimum level for you. Interventions: Medication Management General On track( 025 8:50 AM CDT) Silverio Quintero, SUSANNE Note: Expected end date: ongoing Interventions: Take all medications as prescribed Let your doctor know right away about any changes in your medications Make sure to request a refill of your medication at least one week prior to your last dose Procedures Procedure Name Priority Date/Time Associated Diagnosis Comments XR ABDOMEN KUB Routine 07/15/2025 4:21 PM CDT Chronic constipation BASIC METABOLIC PANEL (CALCIUM TOTAL) Routine 01/17/2025 3:10 AM CDT Abdominal pain, unspecified abdominal location HIV-1 HIV-2 ANTIBODY + HIV P24 AG PANEL STAT 07/15/2020 3:12 PM CDT ENDOSCOPY, COLON, DIAGNOSTIC Routine 06/25/2019 7:10 AM CDT from Last 3 Months or Most Recently Relevant to Health Maintenance Results * XR Abdomen Kub (07/15/2025 4:21 PM CDT) Anatomical Region Laterality Modality Abdomen Digital Radiogra phy 07/17/2025 8:48 AM CDT Impressions 07/17/2025 8:49 AM CDT IMPRESSION: Nonobstructive bowel gas pattern. > Interpreting Provider: Kb Jain MD on 07/17/2025 8:49 AM Narrative 07/17/2025 8:49 AM CDT PROCEDURE: XR ABDOMEN KUB DATE/TIME OF EXAM: 07/15/2025 4:52 PM CLINICAL INFORMATION: None relevant/not provided if blank. Indication: K59.09: Chronic constipation Additional History: COMPARISON: None. FINDINGS: There is instrumented lumbosacral spinal fusion. There is no dilated bowel to suggest obstruction. There is gas in the ascending colon and a moderate to large amount of stool in the transverse and descending colon. Procedure Note Kb Jain MD - 07/17/2025 PROCEDURE: XR ABDOMEN KUB DATE/TIME OF EXAM: 07/15/2025 4:52 PM CLINICAL INFORMATION: None relevant/not provided if blank. Indication: K59.09: Chronic constipation Additional History: COMPARISON: None. FINDINGS: There is instrumented lumbosacral spinal fusion. There is no dilated bowel to suggest obstruction. There is gas in the ascending colon and a moderate to large amount of stool in thetransverse and descending colon. IMPRESSION: Nonobstructive bowel gas pattern. > Interpreting Provider: Kb Jain MD on 07/17/2025 8:49 AM Virginia Love MD DIAGNOSTIC IMAGING ORDERAB LES Final Result * (ABNORMAL) BASIC METABOLIC PANEL (CALCIUM TOTAL) (01/17/2025 3:10 AM CDT) Glucose 122(H) 70 - 99 mg/dL 01/17/2025 3:38 AM CDT [facility] Sodium 139 136 - 145 mmol/L 01/17/2025 3:38 AM CDT [facility] Potassium 4.0 3.5 - 5.1 mmol/L 01/17/2025 3:38 AM CDT [facility] Chloride 109(H) 98 - 107 mmol/L 01/17/2025 3:38 AM CDT [facility] CO2 21(L) 22 - 29 mmol/L 01/17/2025 3:38 AM CDT [facility] Calcium 8.7 8.4 - 10.4 mg/dL 01/17/2025 3:38 AM CDT [facility] Anion Gap 9 6 - 16 mmol/L 01/17/2025 3:38 AM CDT [facility] BUN 10 5.3 - 18.7 mg/dL 01/17/2025 3:38 AM CDT [facility] Creatinine 0.75 0.57 - 1.11 mg/dL 01/17/2025 3:38 AM CDT [facility] eGFR by CKD-EPI >90 >=90 mL/min/1.7 3 m2 01/17/2025 3:38 AM CDT [facility] Blood BLOOD SPECIMEN / Unknown Venipuncture / Unknown 01/17/2025 3:10 AM CDT 01/17/2025 3:14 AM CDT Jer Mcmanus MD LAB - CHEMISTRY ORDERABLE S Final Result Performing Organization Address [facility] Co de Phone Number [facility] [address] [place] [address] [phone] * HIV-1 HIV-2 ANTIBODY + HIV P24 AG PANEL (07/15/2020 3:12 PM CDT) Pathologist [facility] HIV1/2 Ab + P24 Ag Non Reactive Non Reactive 07/15/2020 4:53 PM CDT [facility] Blood BLOOD SPECIMEN / Unknown 07/15/2020 3:12 PM CDT 07/15/2020 4:22 PM CDT Narrative [facility] - 07/15/2020 4:53 PM CDT No Laboratory evidence of HIV infection. us Warner Cleveland DO LAB - CHEMISTRY ORDERABLES Fin al Result Performing Organization Address [facility] Co de Phone Number [facility] [address] [place] [address] [phone] * ENDOSCOPY, COLON, DIAGNOSTIC (06/25/2019 7:10 AM CDT) Report Endoscopy POC _ Patient Name: Geneva Christine Procedure Date: 06/25/2019 7:10 AM Date [...] by the physician, the nurse and the wetlands conservation laborer in the procedure room. Mental Status Examination: [...] ongoing care. Procedure Code(s): --- Professional --- 85924, Colonoscopy, flexible; diagnostic, including collection of specimen(s) by brushing or washing, when performed (separate procedure) --- Technical --- 24418, Colonoscopy, flexible; diagnostic, including collection of specimen(s) [...] parts of digestive tract CPT copyright 2017 [employer]. All rights reserved. The codes documented in this report are preliminary and upon railroad wheels and axles inspector review may be revised to meet current compliance requirements. Dr. Davin Abarca MD Davin Abarca MD 06/25/2019 7:57:57 AM This report has been signed electronically. Number of Addenda: 0 Note Initiated On: 06/25/2019 7:10 AM [facility] 06/25/2019 7:10 AM CDT Davin Abarca MD GI PROCEDURE ORDERABLES Jan cele Result - Final Performing Organization Address City/State/[facility] Co de Phone Number [facility] [place] [place] [address] from Last 3 Months or Most Recently Relevant to Health Maintenance Insurance MEDICAID - [place] [facility] AETNA CIGNA MEDICAID - OUT OF STATE Advance Directives * Full Code (Latest Code [...] 1:04 AM 07/25/2020 7:18 PM Care Teams Bolt Header Relationship Specialty Start Date End Date Nii Pina MD [address] [place] [address] [place] [address] PCP - General Internal Medicine 04/16/25
--- OUTSIDE RECORDS SUMMARY | 2025-10-02 16:59 | XMS_ITS | Clinical Summary ---
Author Organization [facility] Address [address] [place] [address] Care Team Providers Care Bleach Boiler Packer Name Role Phone Octavio Rodriguez MD Unavailable [phone] Yobany Parsons MD Unavailable [phone] Shana Wyatt MD Unavailable [phone] No, Physician Unavailable Olive Shah PT Unavailable Unavailable Osvaldo Crenshaw NP Unavailable [phone] Rosy Monroe MD Primary Care Provi albina [...] Department Care Team Description 09/13/2025 Orders Only [facility] [address] [place] [address] [address] [address] Evan Coreas NP 09/13/2025 Orders Only [facility] [address] [facility] [address] [place] [address] Evan Coreas NP Memory loss (Primary Dx) 09/13/2025 Telephone [facility] [address] [facility] [address] [place] [phone] Arturo Smtih MD 09/05/2025 3:00 PM CDT Office Visit [facility] [address] [facility] [address] [place] [phone] Arturo Smith MD B12 deficiency (Primary Dx); Memory loss; Psychophysiological insomnia; Posttraumatic stress disorder 08/30/2025 3:30 PM CDT Office Visit [facility] 12th [place] [address] [place] [address] Han Allison MD Lumbar radiculopathy (Primary Dx); Spinal stenosis of lumbar region without neurogenic claudication 08/30/2025 3:15 PM CDT - 08/30/2025 11:59 PM CDT Hospital Encounter [facility] [address] [place] [address] Spinal stenosis of lumbar region without neurogenic claudication; Lumbar radiculopathy Discharge Disposition: Discharge to home or self care 08/22/2025 9:00 AM CDT Clinical Support [facility] [address] [facility] [address] [place] [address] Jessica Farley, PhD Memory loss 07/03/2025 Telephone [facility] [place] [address] [facility] [address] [place] [phone] Rosy Monroe MD Appointment from Last 3 [...] How often do you attend chur or oriental orthodox services? More than 4 times per year 03/30/2022 Do you belong to any clubs o r organizations such as denominational groups, unions, fraternal or athletic groups, or [...] on file Legal Sex Female 10:56 AM LEATHER STITCHER Gender Identity Not on file Sexual Orientation [...] 36.3 C (97.3 F) 10/16/2024 3:19 PM LEATHER STITCHER Respiratory Rate 18 10/16/2024 7:34 PM LEATHER STITCHER Oxygen Saturation 98% 09/05/2025 2:46 PM CDT [...] this topic Medical Devices Implanted Type Area Infrastructure Design Engineer Device Identifier Shelf Expiration Date Model / Serial / Lot Cage In Back From Prior Surgery N/A: Back [employer] Ar-8978-Cp Internalbrace Kit Hand Wrist Set Implant Ligament Augmentation - [id number] Implanted:Qty: 1 on 08/13/2021 by Octavio Rodriguez MD at [facility] Right: Thumb [employer] [id number] 02/04/2026 AR-8978-CP / / [id number] Allosource Allofuse Plus Putty Graft 5ml Bone Demineralized Bone Matrix [id number] - [id number] Implanted:Qty: 1 on 08/12/2022 by Yobany Parsons MD at [facility] Spine Lumbar Allosource 10/29/2022 [id number] / / [id number] Orthofix Spinal Implants Screw Bone 6.5mm 35mm Janus Spine Cortex Cannltd St Self [id number] - [id number] Implanted:Qty: 1 on 08/12/2022 by Yobany Parsons MD at [facility] Spine Lumbar Orthofix Spinal Implants [id number] / / Orthofix Spinal Implants Janus 6.5mm 40mm Cannulated Self Tap Self Drill Modular Spine 36-2770 - [id number] Implanted:Qty: 1 on 08/12/2022 by Yobany Parsons MD at [facility] Spine Lumbar Orthofix Spinal Implants [id number] / / Orthofix Spinal Implants Firebird 5.5mm 40mm Hexagon Taper End Prebent Red Spinal 20-3070 - [id number] Implanted:Qty: 1 on 08/12/2022 by Yobany Parsons MD at [facility] Spine Lumbar Orthofix Spinal Implants / / Orthofix Spinal Implants Firebird Modular Lock Spine Screw Set Fixation System [id number] Implanted:Qty: 2 on 08/12/2022 by Yobany Parsons MD at [facility] Spine Lumbar Orthofix Spinal Implants / / Orthofix Spinal Implants [place] L120 Mm Open Body Spine; Thoracolumbar Tall Screw Bone [id number] Implanted:Qty: 2 on 08/12/2022 by Yobany Parsons MD at [facility] Spine Lumbar Orthofix Spinal Implants / / Procedures Procedure Name Priority Date/Time Associated Diagnosis Comments XR LUMBAR SPINE AP LAT FLEX EX Schedule Routine, Read Routine (OP Routine) 08/30/2025 3:33 PM CDT Spinal stenosis of lumbar region without neurogenic claudication Lumbar radiculopathy HEPATITIS C ANTIBODY Routine 09/21/2023 3:46 PM LEATHER STITCHER SCREENING MAMMOGRAM BILATERAL W MAMADOU W IMPLANTS [...] Hepatitis C antibody Blood (09/21/2023 3:46 PM LEATHER STITCHER) Hep C Ab Nonreactive Nonreactive [facility] Comment:Antibodies to HCV no t detected. Does NOT exclude the possibility of recent exposure to HCV. Current interpretive data was last revised on 22 Blood 09/21/2023 3:46 PM LEATHER STITCHER 09/21/2023 6:47 PM LEATHER STITCHER Abdi Ramirez MD LAB MICROBIOLOGY - GENERAL O RDERABLES Final Result Performing Organization Address City/State/[facility] Co de Phone Number [facility] Department [place] [address] * Screening Mammogram Bilateral W Mamadou W [...] to Health Maintenance Insurance [facility] [place]ETNA [place] HMO/POS [employer] Address: [facility] [address] [place] [address] [place]WA AETNA [place] HMO/POS [employer] [employer] Address: [address] [place] [address] AETNA [facility] HMO [facility] OPEN ACCESS [facility] Advance Directives For more information, please contact: [phone] * Full Code (Latest Code Status on File) Date Activated Date Inactivated Comments 08/12/2022 2:11 PM 08/13/2022 6:31 PM * Full Code Date Activated Date Inactivated Comments 03/29/2022 4:15 PM 04/02/2022 7:43 PM * Full Code Date Activated Date Inactivated Comments 12/08/2017 8:37 PM 12/12/2017 7:27 PM * Full Code Date Activated Date Inactivated Comments 12/08/2017 3:24 PM 12/08/2017 8:37 PM Care Teams Bleach Boiler Packer Relationship Specialty Start Date End Date Rosy Monroe MD [address] [place] [address] PCP - General Family Medicine 04/15/25 Octavio Rodriguez MD [address] [facility] [address] [place] [address] Consulting Physician Plastic Surgery 02/02/21 Yobany Parsons MD [address] [facility] [address] [place] [address] Consulting Physician Orthopedic Surgery 03/30/22 Shana Wyatt MD [address] [facility] [address] [facility] [address] [place] [address] Consulting Physician Allergy and Immunology 04/02/22 No, Physician 04/02/22 Olive Shah, PT Physical Therapist Physical Therapy 09/09/22 Osvaldo Crenshaw, MIGUELINA [address] [place] [address] Nurse Practitioner Nurse Practitioner 04/07/23 Arturo Smith MD [address] [facility] [facility] [place] [address] Consulting Physician Neurology 08/06/25
[2025-10-02 17:00] VITALS: BP 149/90; PULSE 68; RESP 20; TEMP 36.3; O2SAT 100
--- NOTE | 2025-10-02 17:05 | ED_ITS ---
HPI - Skin/Abscess/Foreign Bdy General Chief complaint: Skin/Abscess/Foreign Body Stated complaint: Rash Time Seen by Provider: 10/02/25 17:05 Source: patient and RN notes reviewed Mode of arrival: ambulatory Limitations: no limitations History of Present Illness HPI narrative: 50-year-old female presents with concern for ongoing rash. She was seen 5 days ago for rash. She reports the rash started after she was changing a smoke detector and dust fell from the ceiling on to her skin. She was prescribed prednisone for 5 days and was given permethrin cream because she was concerned she could have had dust mites on her skin. She used permethrin cream twice, cleaned all of her bedding, upholstery, clothing. She also finished the steroids. Reports that itching is worse. She says the rash has not spread but it is more itchy. She has been occasionally taking Benadryl for itching. She denies any new home care products, skin care products, medications. She denies any swollen lymph swollen tongue. MD complaint: rash Related Data Allergies Allergy/AdvReac Type Severity Reaction Status Date / Time Sulfa (Sulfonamide Allergy Severe Hives Verified 10/02/25 17:06 Antibiotics) hydrocodone Allergy Mild Itching Verified 10/02/25 17:06 diazepam Allergy Unknown Hallucinati Verified 10/02/25 17:06 ng hydromorphone (From Dilaudid) Allergy Anaphylaxis Verified 10/02/25 17:06 levofloxacin AdvReac Severe Stroke Verified 10/02/25 17:06 like symptoms RASH metronidazole (From Flagyl) AdvReac Nausea and Verified 10/02/25 17:06 Vomiting Review of Systems Review of Systems: CONSTITUTIONAL: Denies malaise, chills, sweats, or fever. EYES: Denies redness, or discharge. ENT: Denies rhinorrhea, congestion, swollen lips, swollen tongue CARDIOVASCULAR: Denies chest pain, palpitations, or edema. RESPIRATORY: Denies cough or dyspnea. GASTROINTESTINAL: Denies abdominal pain, nausea, vomiting SKIN: Reports itchy rash on her torso and arms MUSCULOSKELETAL: Denies joint pain or myalgia. NEUROLOGIC: Denies headache. All systems reviewed & are unremarkable except as noted in HPI and below PMFSH Past Medical History Medical History Anxiety Elective x1 HSV (herpes simplex virus) infection Type 1 and Type 2 Hypertension Missed x1 2009 PCOS (polycystic ovarian syndrome) Surgical History Surgical History Gastric bypass status for obesity 2011 H/O section X3 12/06/91, c/s, F, 6#7, Toxemia 09/21/06, c/s, M, 7# 11/21/09, c/s, M, 7# History of abdominoplasty History of appendectomy History of cholecystectomy 2012 History of left salpingo-oophorectomy History of repair of hiatal hernia Family History Family History Father Alive and well Mother Schizophrenia Social History Social History Smoking status: Never smoker Second hand tobacco smoke exposure: No Alcohol intake: never Substance use: never Living arrangements: with family Occupation/Education: occupation Gender identity (if verbalized by the patient): Female Sexual Orientation (if Verbalized by the Patient): Straight or Heterosexual Spiritual care concerns: No Comments At time of signature, agree with nursing past medical, surgical, social and family history. There is no relevant family history pertinent to the presenting complaint Exam Narrative: GENERAL: Well-appearing, well-nourished, and in no acute distress. HEAD: Normocephalic, atraumatic. EYES: PERRLA, conjunctivae clear, and EOMI. ENT: Mucous membranes moist. Oropharynx without edema, erythema or lesions. NECK: Supple. No lymphadenopathy CHEST: Clear to auscultation. No respiratory distress. HEART: Regular rate and rhythm. SKIN: Warm, dry. Small scattered Patches of slightly raised dry erythema noted to the torso and arms. No vesicles, no linear lines or tracks, no papules noted NEURO: Alert and oriented x3. PSYCH: Normal mood and affect Course Course Emergency Course: Patient is aware of diagnosis, understands and agrees to treatment plan. Anticipatory guidance given. Patient agrees to follow-up as directed and is aware of reasons to seek care at the emergency department. Portions of this record may have been created with voice recognition software Level of Care: Express Care Visit Vital Signs Vital signs: Reviewed. MDM - Skin/Abscess/Foreign Bdy MDM Narrative Medical decision making narrative: Does not appear at this time to be erythema multiforme, bullous, SJS, TEN; no evidence at this time to suggest RMSF, endocarditis or Lyme disease; patient looks well, nontoxic and is tolerating oral intake; no neurologic signs or symptoms; no headache, photophobia or neck pain; afebrile; appropriate for initial outpatient treatment; discussed the importance of follow-up, patient agrees; question, viral exanthema, contact dermatitis, allergic dermatitis, eczema, urticaria, infestation. No soft palate or uvula edema, no tongue, lip edema or other mucosal involvement, no respiratory compromise, no stridor, no wheezing, no wheezing, no history of syncope, no hypotension, no nausea, vomiting, or diarrhea. Instructed patient to go to nearest ER immediately for any worsening symptoms including but not limited to: fever, spreading rash, pain, sore throat, headache, dizziness, chest pain, trouble breathing, or any symptoms concerning to the patient. Critical Care Time Critical Care Time Critical Care Time: No Discharge Plan Discharge Clinical Impression: Acute eruption of skin Patient Disposition: Home Condition: Stable Instructions: Contact Dermatitis (ED) Additional Instructions: Take Benadryl 1-2 tabs every 6 hours for itching for the next 2 days. Can also take nondrowsy antihistamine such as Zyrtec and Pepcid, you can take these each daily. Take steroid pack as prescribed, use cream as prescribed. If this rash does not resolve with this treatment he needs follow-up with your primary care doctor for further evaluation. He any swelling of your lips or tongue please go to the emergency room Patient Language: Persian Prescriptions: New triamcinolone acetonide 0.1 % cream 1 applic TOPICAL BID 7 Days Qty: 80 0RF methylprednisolone [Medrol (Conner)] 4 mg tablets,dose pack See Rx Instructions .ROUTE .COMPLEX Qty: 21 0RF Rx Instructions: orally per package directions Follow-up/Referrals: UNKNOWN,DOCTOR [Primary Care Provider] Stand Alone Forms: Work/School Release IP Time of Disposition: 17:26
== END 2025-10-02 17:46 | disposition home or self-care (01) ==
PROVIDERS: Emergency Provider Nurse Practitioner
DX: R21 Rash and other nonspecific skin eruption (principal); I10 Essential (primary) hypertension
CPT/HCPCS: 96372; 99213; G0463; J2919